=== PATIENT | female | born 2000 | race Caucasian/White ===

== ENCOUNTER 2023-03-06 19:25 | Emergency (ER) | payer OTHER, SELFPAY ==
[2023-03-06 19:31] VITALS: BP 129/80; PULSE 80; RESP 15; TEMP 36.4; O2SAT 99
[2023-03-06 20:03] LABS: Basophils Percent Auto 0.3 % (0.2-1.2); Eosinophils Percent Auto 0.1 % (0-4.4); Hematocrit 43.8 % (37.0-47.0); Hemoglobin 14.8 g/dL (12.0-15.0); Immature Granulocyte Absolute 0.06 K/mm3 (0.00-0.031); Immature Granulocyte Percent A 0.4 % (0-0.5); Immature Platelet Fraction Pct 4.7 % (0.9-11.2); Lymphocytes Absolute Auto 1.02 K/mm3 (0.9-3.2); Lymphocytes Percent Auto 7.5 % (18.3-44.2); Mean Corpuscular HGB Conc 33.8 g/dl (32-36); Mean Corpuscular Volume 91.8 fl (80-100); Mean Platelet Volume 10.1 fl (7.4-10.4); Monocytes Absolute Auto 0.8 K/mm3 (0.1-0.6); Monocytes Percent Auto 5.6 % (2.6-8.5); Neutrophils Absolute Auto 11.6 K/mm3 (1.3-6.7); Neutrophils Percent Auto 86.1 % (45.5-73.1); Platelet Count Result 277 k/mm3 (150-375); Red Blood Count 4.77 M/mm3 (4.2-5.4); White Blood Count 13.5 K/mm3 (4.5-10.0)
[2023-03-06 20:10] LABS: Alanine Aminotransferase 27 U/L (6-35); Albumin Level 5.2 g/dL (3.5-5.1); Alkaline Phosphatase 84 U/L (38-126); Anion Gap 15 mmol/L (8-16); Aspartate Amino Transferase 31 U/L (14-36); Bilirubin,Total 1.2 mg/dL (0.2-1.3); Blood Urea Nitrogen 12 mg/dL (7-17); Carbon Dioxide 19 mmol/L (22-30); Chloride 107 mmol/L (98-107); Estimated CRCL calculation 89 ml/min; Estimated Glomerular Filt Rate > 60; Glucose 136 mg/dL (65-110); Lipase 47 U/L (23-300); Potassium 3.9 mmol/L (3.4-5.0); Sodium 141 mmol/L (137-145)
[2023-03-06] MEDS: FAMOTIDINE 20 MG/2 ML VIAL IV PUSH (20:23)
[2023-03-06] MEDS: SODIUM CHLORIDE 0.9% IV 2,000 ML 999 ML IV CONT (20:23)
[2023-03-06] MEDS: ONDANSETRON INJ 4 MG/2 ML VIAL IV PUSH (20:23)
[2023-03-06] MEDS: HALOPERIDOL LACTATE 5 MG/ML VIAL IV PUSH (20:23)
--- NOTE | 2023-03-06 20:31 | ED.GENADULT ---
HPI - General Adult General Chief complaint: Nausea/Vomiting/Diarrhea Stated complaint: vomiting Time Seen by Provider: 03/06/23 19:58 History of Present Illness HPI narrative: This is a 22-year-old female presenting ED with 1 day of nausea vomiting and loose stools. Patient says it started when she woke from sleep. She is also associated with a diffuse crampy abdominal pain. Pain is nonradiating, 5 out 10 intensity and comes and goes. It is improved with hot showers. She has experienced this in the past. She is a daily marijuana user. She denies fever chills chest pain difficulty breathing urinary symptoms, vaginal discharge irritation Related Data Allergies Allergy/AdvReac Type Severity Reaction Status Date / Time Sulfa (Sulfonamide Allergy Unknown Verified 03/06/23 20:08 Antibiotics) PMFSH Past Medical History Medical History Cannabinoid hyperemesis syndrome Exam Narrative: APPEARANCE: No apparent distress. Head: atraumatic. EYES: EOMI, NOSE: Atraumatic NECK: Trachea midline RESPIRATORY: No increased rate of breathing CARDIOVASCULAR: RRR, ABDOMINAL: abdomen soft nontender tender, no no guarding or rebound MUSCULOSKELETAl: No obvious deformities NEURO: Alert. Moving 4/4 extremities SKIN:: Warm, dry. Normal color PSYCHIATRIC: Normal affect Course Vital Signs Vital signs: Vital Signs Temperature 97.5 F L 03/06/23 19:31 Pulse Rate 80 03/06/23 19:31 Respiratory Rate 15 03/06/23 19:31 Blood Pressure 129/80 03/06/23 19:31 Pulse Oximetry 99 03/06/23 19:31 Oxygen Delivery Room Air 03/06/23 19:31 Temperature 97.5 F L 03/06/23 19:31 Pulse Rate 82 03/06/23 22:17 Respiratory Rate 15 03/06/23 22:17 Blood Pressure 126/90 03/06/23 22:17 Pulse Oximetry 97 03/06/23 22:17 Oxygen Delivery Room Air 03/06/23 19:31 Medical Decision Making [facility] Narrative Medical decision making narrative: -Presentation: 22-year-old female presenting with nausea vomiting and loose stools. -DDX includes but is not limited to: Gastroenteritis, cyclic vomiting, viral syndrome -Co-morbidities complicating care: daily marijuana use -Social determinants of health: patient just graduated college lives with her mom and an -External Chart Review: none -Hx from independent Sources: mother @bedside -Discussion of Management/Consultants: none -Independent interpretation of studies: white blood cell count slightly elevated 13.5. Metabolic panel is within normal limits. Lipase was normal. Patient is not . Urine not indicative of infection Dx tests considered but not ordered: CT abdomen pelvis- abdominal exam is benign -Procedures: -Interventions: 2 L normal saline, Zofran, Haldol, Pepcid, Compazine, Benadryl -Shared decision making / Disposition: upon re-evaluation patient is feeling better. Vital signs normal, abdominal exam is benign. She is tolerating p.o.. Patient discharged. -RX Zofran, Reglan Vital Signs Vital Signs: Vital Signs Temperature 97.5 F L 03/06/23 19:31 Pulse Rate 80 03/06/23 19:31 Respiratory Rate 15 03/06/23 19:31 Blood Pressure 129/80 03/06/23 19:31 Pulse Oximetry 99 03/06/23 19:31 Oxygen Delivery Room Air 03/06/23 19:31 Temperature 97.5 F L 03/06/23 19:31 Pulse Rate 82 03/06/23 22:17 Respiratory Rate 15 03/06/23 22:17 Blood Pressure 126/90 03/06/23 22:17 Pulse Oximetry 97 03/06/23 22:17 Oxygen Delivery Room Air 03/06/23 19:31 Lab Data 03/06/23 19:48 03/06/23 19:47 Labs: Lab Results 03/06/23 03/06/23 03/06/23 Range/Units 19:47 19:48 22:16 WBC 13.5 H (4.5-10.0) K/mm3 RBC 4.77 (4.2-5.4) M/mm3 Hgb 14.8 (12.0-15.0) g/dL Hct 43.8 (37.0-47.0) % MCV 91.8 (80-100) fl MCH 31.0 (26-34) pg MCHC 33.8 (32-36) g/dl RDW 12.0 (11.5-14.5) % Plt Count 277 (150-3
[2023-03-06 21:16] VITALS: BP 115/73; PULSE 89; RESP 16; O2SAT 100
[2023-03-06] MEDS: diphenhydrAMINE HCl INJ 50 MG/ML VIAL 25 MG IV PUSH (21:35)
[2023-03-06] MEDS: PROCHLORPERAZINE EDISYLATE 10 MG/2 ML VIAL IV PUSH (21:36)
[2023-03-06 22:17] VITALS: BP 126/90; PULSE 82; RESP 15; O2SAT 97
[2023-03-06 22:27] LABS: Appearance Urine Clear (Clear); Bacteria Urine None Seen /hpf; Bilirubin Urine Negative (Negative); Blood Urine 1+ (Negative); Color Urine Yellow (Yellow); Glucose Urine UA Negative (Negative); Ketones Urine 4+ mg/dL (Negative); Leukocyte Esterase Ur Negative LEU/UL (Negative); Nitrate Urine Negative (Negative); Non Pathogenic Casts 0-2; Protein Urine Negative (Negative); RBC Urine 0-2 /hpf (0-2); Specific Grav Ur 1.021 (1.001-1.035); Squamous Epithelial Cell Urine None seen /hpf (Few); Urobilinogen Urine 0.2 mg/dL (<2.0); WBC Urine 0-5 /hpf
[2023-03-06 22:59] LABS: Add Urine Microscopic? YES
[2023-03-06 23:34] VITALS: BP 119/83; PULSE 80; RESP 15; O2SAT 97
== END 2023-03-06 23:36 | disposition home or self-care (01) ==
PROVIDERS: Emergency Provider Emergency Medicine
DX: R11.2 Nausea with vomiting, unspecified (principal); F12.90 Cannabis use, unspecified, uncomplicated
CPT/HCPCS: 36415; 80053; 81001; 81025; 83690; 85025; 85055; 96361; 96374; 96375; 99284; J0780; J1200; J1630; J2405; J7030

== ENCOUNTER 2023-03-10 16:40 | Emergency (ER) | payer OTHER, SELFPAY ==
[2023-03-10] VITALS (7 sets, daily range): BP systolic 118–150; BP diastolic 69–110; PULSE 76–94; RESP 16–18; TEMP 36.6–37.1; O2SAT 99–100
--- NOTE | ~2023-03-10 | CT_ITS ---
EXAMINATION: CT abdomen pelvis w con INDICATION: Epigastric abdominal pain TECHNIQUE: Computed tomographic images of the abdomen and pelvis were obtained after the administrati on of 100 cc of Omnipaque 350 intravenous contrast. The dose-length product (DLP) was 276.87 mGy-cm. Automated exposure control and iterative reconstruction technique were employed. COMPARISON: None available FINDINGS: The lung bases are clear. The heart size is normal. The liver, spleen, pancreas, gallbladde r, and adrenal glands are normal. There is mild wall thickening of the gastric antrum. No pathologica lly enlarged abdominal or pelvic lymph nodes are identified. The kidneys are unremarkable. No free in traperitoneal gas or evidence of bowel obstruction. IMPRESSION: 1. Mild wall thickening of the gastric antrum which could reflect gastritis. Reviewed, dictated and finalized at location F.
--- NOTE | 2023-03-10 17:51 | ED.NAVMDI ---
HPI - Nausea/Vomiting/Diarrhea General Chief complaint: Nausea/Vomiting/Diarrhea <HENRIK Fuller Last Filed: 03/10/23 20:25> Stated complaint: vomiting <HENRIK Fuller Last Filed: 03/10/23 20:25> Time Seen by Provider: 03/10/23 17:06 <HENRIK Fuller Last Filed: 03/10/23 20:25> Source: patient and old records reviewed <HENRIK Fuller Last Filed: 03/10/23 20:25> Mode of arrival: ambulatory <HENRIK Fuller Last Filed: 03/10/23 20:25> Limitations: no limitations <HENRIK Fuller Last Filed: 03/10/23 20:25> History of Present Illness HPI Narrative: Patient is a 22 y/o female who presents to the ED with c/o N/V. Patient reports having nausea and vomiting since Saturday. She states in the ED Saturday night. She was given fluids, antiemetics and eventually able to tolerate p.o. intake. Sx's were thought to be r/t daily marijuana use. CT scan was not performed. She was discharged with Zofran and Reglan. Patient states she has still not been able to keep down any food or drink. Last had food on Saturday night. She reports having upper abdominal pain and burning, similar to acid reflux, and lower abdominal cramping. Denies any fever, diarrhea. Last had bowel movement on Saturday. Denies hematemesis, cough or cold symptoms, urinary sx's. <HENRIK Fuller Last Filed: 03/10/23 20:25> Related Data Allergies/Adverse reactions: Allergies Allergy/AdvReac Type Severity Reaction Status Date / Time Sulfa (Sulfonamide Allergy Hives Verified 03/10/23 17:01 Antibiotics) <HENRIK Fuller Last Filed: 03/10/23 20:25> Review of Systems Review of Systems: CONSTITUTIONAL: Denies fever, chills, or sweats. ENT: Denies rhinorrhea, congestion, sore throat. CARDIOVASCULAR: Denies chest pain, palpitations, or edema. RESPIRATORY: Denies cough or dyspnea. GASTROINTESTINAL: See HPI. GENITOURINARY: Denies dysuria or hematuria. NEUROLOGIC: Denies headache, numbness, or weakness. <Jaye Segundo PA-C - Last Filed: 03/10/23 20:25> All systems reviewed & are unremarkable except as noted in HPI and below <Jaye Segundo PA-C - Last Filed: 03/10/23 20:25> PMFSH Past Medical History Medical History: Medical History (Updated 03/10/23 @ 20:17 by Jaye Segundo PA-C) No pertinent past medical history <Jaye Segundo PA-C - Last Filed: 03/10/23 20:25> Surgical History Surgical History: Surgical History (Updated 03/10/23 @ 18:11 by Jaye Segundo PA-C) No pertinent past surgical history <Jaye Segundo PA-C - Last Filed: 03/10/23 20:25> Social History Social History: Social History (Updated 03/10/23 @ 18:45 by Jaye Segundo PA-C) Smoking status: Never smoker Substance use: current Substance use type: marijuana <Jaye Segundo PA-C - Last Filed: 03/10/23 20:25> Exam Narrative: GENERAL: Mildly ill appearing, well-nourished, non-toxic, in no acute distress. HEAD: Normocephalic, atraumatic. NECK: Supple. No adenopathy, no masses. RESPIRATORY: Airway patent, respirations nonlabored. Clear to auscultation bilaterally, no rales, rhonchi, wheezing. CARDIOVASCULAR: Regular rate and rhythm without murmurs, rubs, or gallops. Radial pulses 2+ and equal bilaterally. ABDOMINAL: Soft, tenderness in epigastric region, minimal throughout lower abdomen, no focal lower abdominal tenderness. Nondistended, no hepatosplenomegaly. Normoactive BS. MUSCULOSKELETAL: Moves all extremities. Strength/ROM intact without gross deformities. SKIN: Warm, dry, normal color. No rashes. NEURO: A&O X3. Speech clear. Cranial nerves II-XII grossly intact. Steady gait. No ataxic movements. PSYCHIATRIC: Appropriate mood and affect. Normal interaction. <Jaye Segundo PA-C - Last Filed: 03/10/23 20:25> Course Course Emergency Course
[2023-03-10 18:05] LABS: Basophils Percent Auto 0.3 % (0.2-1.2); Hematocrit 44.9 % (37.0-47.0); Hemoglobin 16.3 g/dL (12.0-15.0); Immature Granulocyte Absolute 0.04 K/mm3 (0.00-0.031); Immature Granulocyte Percent A 0.4 % (0-0.5); Lymphocytes Absolute Auto 0.91 K/mm3 (0.9-3.2); Lymphocytes Percent Auto 8.1 % (18.3-44.2); Mean Corpuscular HGB Conc 36.3 g/dl (32-36); Mean Corpuscular Volume 85.5 fl (80-100); Monocytes Percent Auto 8.8 % (2.6-8.5); Neutrophils Absolute Auto 9.3 K/mm3 (1.3-6.7); Neutrophils Percent Auto 82.4 % (45.5-73.1); Platelet Count Result 350 k/mm3 (150-375); Red Blood Count 5.25 M/mm3 (4.2-5.4); Red Cell Distribution Width 11.6 % (11.5-14.5); White Blood Count 11.2 K/mm3 (4.5-10.0)
[2023-03-10 18:15] LABS: Alanine Aminotransferase 24 U/L (6-35); Albumin Level 5.6 g/dL (3.5-5.1); Alkaline Phosphatase 77 U/L (38-126); Anion Gap 17 mmol/L (8-16); Aspartate Amino Transferase 31 U/L (14-36); Bilirubin,Total 1.9 mg/dL (0.2-1.3); Blood Urea Nitrogen 16 mg/dL (7-17); Calcium 9.8 mg/dL (8.4-10.2); Carbon Dioxide 28 mmol/L (22-30); Chloride 87 mmol/L (98-107); Estimated CRCL calculation 72 ml/min; Estimated Glomerular Filt Rate > 60; Glucose 82 mg/dL (65-110); Lipase 58 U/L (23-300); Potassium 3.1 mmol/L (3.4-5.0); Sodium 132 mmol/L (137-145)
[2023-03-10] MEDS: METOCLOPRAMIDE HCL INJ 10 MG/2 ML VIAL IV PUSH (18:17)
[2023-03-10] MEDS: PANTOPRAZOLE SODIUM IV 40 MG VIAL IV PUSH (18:17)
[2023-03-10] MEDS: SODIUM CHLORIDE 0.9% IV 1,000 ML 999 ML IV CONT ×2 (18:17→19:13)
[2023-03-10 19:26] LABS: Appearance Urine Clear (Clear); Bacteria Urine None Seen /hpf; Bilirubin Urine Negative (Negative); Blood Urine 2+ (Negative); Color Urine Yellow (Yellow); Glucose Urine UA Negative (Negative); Ketones Urine 3+ mg/dL (Negative); Leukocyte Esterase Ur Negative LEU/UL (Negative); Nitrate Urine Negative (Negative); Protein Urine Trace mg/dL (Negative); RBC Urine 0-2 /hpf (0-2); Squamous Epithelial Cell Urine Occasional /hpf (Few); Urobilinogen Urine 0.2 mg/dL (<2.0); WBC Urine 0-5 /hpf; pH Urine 5.5 (5.0-9.0)
[2023-03-10 19:29] LABS: Add Urine Microscopic? YES
[2023-03-10] MEDS: ONDANSETRON INJ 4 MG/2 ML VIAL IV PUSH (20:09)
[2023-03-10] MEDS: diphenhydrAMINE HCl INJ 50 MG/ML VIAL 25 MG IV PUSH (20:09)
[2023-03-10 20:26] LABS: Magnesium 2.3 mg/dL (1.6-2.3)
[2023-03-10] MEDS: HALOPERIDOL LACTATE 5 MG/ML VIAL IV PUSH (20:32)
[2023-03-10] MEDS: POTASSIUM CHLORIDE 20 MEQ PACKET (FOR LIQUID) 40 MEQ PO (20:32)
== END 2023-03-10 21:29 | disposition home or self-care (01) ==
PROVIDERS: Emergency Provider Physician Assistant; PCP Internal Medicine Infectious Disease
DX: K29.00 Acute gastritis without bleeding (principal); R11.2 Nausea with vomiting, unspecified
CPT/HCPCS: 36415; 74177; 80053; 81001; 81025; 83690; 83735; 85025; 96361; 96365; 96375; 99284; A9270; C9113; J0131; J1200; J1630; J2405; J2765; J7030; Q9967

== ENCOUNTER 2025-03-14 07:17 | Observation (INO) | payer OTHER, SELFPAY ==
--- NOTE | ~2025-03-14 | XR_ITS ---
XR chest 1V portable Ordering provider: Ananth Virgen MD History: 24 years Female with . vomting . Comparison: None. FINDINGS: MEDIASTINUM: The cardiac silhouette is not enlarged. LUNGS: No infiltrates, effusions or pneumothorax. OTHER: No free air under the diaphragm. IMPRESSION: No acute cardiopulmonary pathology. Reviewed, dictated and finalized at location A.
--- NOTE | ~2025-03-14 | CT_ITS ---
CT abdomen pelvis w con Ordering provider: Tasha Mcdonald MD History: 24 years Female with . Abdominal pain . Comparison: February 28 Technique: CT abdomen and pelvis with IV and without oral contrast. Automated exposure control and it erative reconstruction technique were employed. The dose-length product was 211.57 mGy-cm. 100 mL Omn ipaque 350 was given IV. Findings: VISUALIZED LOWER CHEST: Normal. UPPER ABDOMINAL ORGANS: Liver: Normal. Gallbladder: Normal. Spleen: Normal. Stomach/duodenum: Normal. Pancreas: Normal. Adrenals: Normal. Kidneys: Normal. PELVIC ORGANS: The bladder is underfilled. Uterus: Normal. BOWEL AND MESENTERY: Colon: No evidence of diverticulitis.. No evidence of appendicitis. Small Bowel: Normal. No obstruction. Peritoneum/mesentery: No free air or free fluid. No mesenteric lymphadenopathy. RETROPERITONEUM: Normal aorta. No retroperitoneal lymphadenopathy. MUSCULOSKELETAL: Superficial soft tissues: The superficial soft tissues are normal. Bones: Normal spine. IMPRESSION: 1. No evidence of appendicitis, diverticulitis or intestinal obstruction. Reviewed, dictated and finalized at location A.
--- OUTSIDE RECORDS SUMMARY | 2025-03-14 07:20 | XMS_ITS | Clinical Summary ---
Author Organization [facility] [address] Address [address] [place] [address] Phone Care Team Providers Care Tariff Counsel Name Role Phone Jaye Martin MD Unavailable Iain Skaggs MD Primary Care Provider [phone] Fransico Solorzano MD Unavailable Harmony Thomas Unavailable Allergies Active Allergy Reactions Criticality Noted Date Comments Sulfa (Sulfonamide Antibiotics) Hives High 01/09 Medications famotidine (PEPCID) 20 mg tabletIndicatio ns:gastroesopha geal reflux disease Take 1 tablet (20 mg total) by mouth 2 (two) times a day 180 tablet 3 5 Active buPROPion XL (WELLBUTRIN XL) 300 mg 24 hr tabletIndicatio ns:Anxiety Take 1 tablet (300 mg total) by mouth every morning 90 tablet 3 5 Active buPROPion XL (WELLBUTRIN XL) 150 mg 24 hr tabletIndicatio ns:Anxiety Take 2 tablets (300 mg total) by mouth every morning 5 02/25/20 25 Discontinu ed(Reorder ) buPROPion XL (WELLBUTRIN XL) 150 mg 24 hr tabletIndicatio ns:Anxiety Take 2 tablets (300 mg total) by mouth every morning 180 tablet 3 04/02/25/20 Discontinu ed(Reorder ) Active Problems Problem Noted Date Diagnosed Date Weight gain 03/05/2024 Assessment & Plan (04/10/2024 10:45 AM CDT): Chronic, present for years, improved. She cut out all sodas and otherwise modified her diet with pretty good preliminary results. The Wellbutrin may also be helping with some weight loss. Assessment & Plan (03/05/2024 8:48 AM CDT): She is slightly overweight, and is concerned that she gains weight despite eating right and exercising regularly. She has access to a home gym at her parent's house. She avoids junk food, although she does drink sodas a few days a week. Mostly she eats sensibly but is not counting calories. We suggested trying a calorie count and cutting back by 10%. Gastroesophageal reflux disease with esophagitis 01/21/2020 Overview (04/09/2023): Upper endoscopy : Short segment Yang's esophagus, but negative pathology (mild reactive changes only). Improved/resolved as of May 2020. Recurrent as of March 2023, omeprazole reordered by GI (Dr. Rashad Lomeli). Assessment & Plan (12/29/2024 4:56 AM PROGRAM PROPOSALS COORDINATOR): Chronic, present for five or more years, we are switching her from PRN omeprazole to daily famotidine, see discussion elsewhere. Assessment & Plan (05/11/2020 10:58 AM CDT): Upper endoscopy earlier this year was essentially normal except for mild reactive esophageal changes. Acid reflux type symptoms have essentially resolved. She uses Tums occasionally as needed. We will monitor clinically. Yang's esophagus without dysplasia 01/21/2020 Overview (04/09/2024): Short segment on endoscopy. Focal intestinal (goblet cell) metaplasia, negative for dysplasia. Assessment & Plan (12/29/2024 4:55 AM PROGRAM PROPOSALS COORDINATOR): Chronic, diagnosed about five years ago, with repeat endoscopy about 18 months ago showing a short segment of Yang's without dysplasia. She currently uses omeprazole 20 mg as needed for symptoms or to prevent symptoms, for example if she is planning to have a meal with red sauce or wine. Recommend resuming chronic acid suppression, with switch from omeprazole to famotidine to hopefully reduce risk of long-term therapy. She denies any trouble swallowing. Recommend keeping followups with GI. We will touch base with her GI physician, Dr. Solorzano, to make sure the above agrees with his plan. Assessment & Plan (04/10/2024 10:45 AM CDT): Chronic, controlled. She continues on omeprazole. I reminded her to follow-up with her GI specialist. Assessment & Plan (03/05/2024 8:41 AM CDT): She had a follow-up EGD last fall, and there was still some Yang's esophagus on the biopsy. She denies trouble swallowing. She only takes omeprazole or famotidine if she has something to eat that causes her heartburn to flare up. We recommended that she take omeprazole daily for now, and call Dr. Solorzano for further instructions and appropriate follow-up. He did mention in his note from the EGD that she should stay on a PPI. Most likely another EGD would be recommended in three years or so Assessment & Plan (07/12/2023 3:08 PM CDT): She sees Dr. Fransico Solorzano or his nurse practitioner. She takes omeprazole. A follow-up endoscopy is planned in the near future. We discussed the risks versus benefits of long-term PPI therapy. In addition to taking daily omeprazole, she sometimes takes Pepcid if she plans to eat something that gives her heartburn. Overall, symptoms seem to be well controlled. She will keep her follow ups with GI for this condition. Anxiety 12/21/2019 Assessment & Plan (12/29/2024 4:53 AM PROGRAM PROPOSALS COORDINATOR): Chronic, present for five or more years, generally well controlled on Wellbutrin, but she ran out and wanted to see how she did without it. She reports feeling emotionally okay, but would like to resume a lower dose as a p reventive measure. Rx sent. Assessment & Plan (04/10/2024 10:45 AM CDT): Chronic, improved. She can tell a definite difference after being on Wellbutrin 150 mg daily for about one month. She still gets anxious and diana at times and would like to try a higher dose which we sent in today. Follow-up in six months, or sooner if needed. Assessment & Plan (03/05/2024 8:40 AM CDT): Mostly she has anxiety, denies feeling depressed as such, but she is a little tearful in the office when describing her emotional struggles. We provided supportive care. Assessment & Plan (12/21/2019 11:37 AM PROGRAM PROPOSALS COORDINATOR): Patient reports symptoms or chest pain and shortness of breath, when she is anxious. She noted that she has been having increasing feelings of anxiety and worry. Medication initiated. Will re-evaluate at her next visit. Mood disorder 12/21/2019 Assessment & Plan (12/29/2024 4:56 AM PROGRAM PROPOSALS COORDINATOR): Chronic, diagnosed about five years ago, mostly anxiety and doing well at this time, see discussion elsewhere. Assessment & Plan (03/05/2024 8:42 AM CDT): She is having trouble with anxiety again, but denies feeling depressed. She emphatically denies suicidal ideation, I would never do that. She denies significant alcohol use, only an occasional drink on the weekends. She denies substance use, only occasional use of marijuana, n ot like before. 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 When she had similar symptoms during college, she responded well to Wellbutrin. She would like to get back on this medication so we sent in a starting dose. We also recommended some counseling, which she has already started to line this up. We will see her back in one month. Assessment & Plan (07/12/2023 3:08 PM CDT): Her mood is much better. She stopped taking mirtazapine several months ago. 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 She is enjoying the very much. Assessment & Plan (06/29/2022 1:54 PM CDT): She graduated from [employer] in October. 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 She is living with her parents and two younger siblings aged 11 and 19. She says her mood is good. We will have her continue the Wellbutrin. Assessment & Plan (04/30/2022 2:21 PM CDT): Patient returns today as she has been struggling with anxiety and depression once again. She states she had been on paxil before, but did not find it to be helpful. She notices she feels anxious about things that are really not such a big deal and are controllable. She on exam today has an elevated PHQ-9 at 10. We discussed options and will trial Wellbutrin as she has noted a 30lb weight gain over the last 1-2 years and is hesitant to gain more. I have also recommended cognitive behavioral therapy which she is agreeable to. She will return in 6-8 weeks for follow up or sooner if needed. Assessment & Plan (05/11/2020 10:59 AM CDT): She continues to have trouble with her mood. She has two or three days of feeling good followed by 3-4 days of feeling down. The symptoms are not extreme, but she does have sadness. She also worries a lot about things she has little control over. We discussed mood issues. It sounds like she is cycling a little bit but is not frankly bipolar. Prozac has not really helped at the current dose. Since anxiety is a prominent feature, we will change to Paxil. We will see her back in one month or sooner if needed. We will consider a mood stabilizer such as valproate. I also recommended that she look into cognitive behavioral therapy for anxiety. She will talk to her mom about this and see what is available. Assessment & Plan (12/22/2019 7:56 AM PROGRAM PROPOSALS COORDINATOR): Patient presents with symptoms of depression and anxiety that have progressively gotten worsen and are now interfering with her daily life. We discussed medication options and she is agreeable to trying a low dose medication to assist with symptoms. We will begin prozac at 10mg daily and up-titrate as needed. She will follow up in January and we will evaluate at that time. Resolved Problems Problem Noted Date Diagnosed Date Resolved Date Bilateral impacted cerumen 06/19/2021 0 06/28/2022 Overview (06/28/2022): Ears irrigated, tolerated well. Assessment & Plan (06/19/2021 4:29 PM CDT): Patient presents with reports of trouble hearing from the right ear. On exam she was noted to have bilateral cerumen impaction. Ears were irrigated, which patient tolerated well. Cerumen removed and hearing improved. Patient was instructed she can use debrox drops as directed for recurrent issues. She will call with any further issues or concerns. Bacterial cystitis 05/11/2021 Overview (06/28/2022): Typical UTI symptoms, has had them before, no systemic symptoms. Treated empirically with nitrofurantoin. Marijuana use 01/15/2020 05/11/2020 Overview (05/11/2020): First 1-2 years of college, resolved. Assessment & Plan (01/15/2020 4:11 PM PROGRAM PROPOSALS COORDINATOR): Complete cessation encouraged. Other chest pain 12/21/2019 07/12/2023 Overview (07/12/2023): Normal EKG and echo, likely due to acid reflux. Resolved as of 2022 office visit. Assessment & Plan (05/11/2020 11:00 AM CDT): She had some atypical chest pain that was probably related to acid reflux. EKG and echo were unremarkable. Additional workup is not needed at this time. Assessment & Plan (12/21/2019 11:36 AM PROGRAM PROPOSALS COORDINATOR): Most likely secondary to anxiety. We did however, do an EKG that revealed sinus bradycardia and T-wave inversion in V1-V2 which is most likely a normal variant, however, comparison not available. When discussed with patient she does report she has a hx of a heart murmur, however, murmur not appreciated on exam today. We will do 2D echo to evaluate for any LV dysfunction or valvular abnormality. Instructed patient if she had continue chest pain she would need to go to the ER for further evaluation, understanding verbalized. Yeast vaginitis 05/13/2019 05/11/2020 Overview (05/11/2020): Resolved. Urinary frequency 05/08/2019 05/08/2019 Persistent mood disorder 05/11/201711/2018 Assessment & Plan (10/31/2018 2:35 PM PROGRAM PROPOSALS COORDINATOR): She is no longer taking Remeron. She does not feel she needs it. She has adjusted well to college life. We will have her follow up annually or sooner as needed. Assessment & Plan (12/08/2017 8:39 PM PROGRAM PROPOSALS COORDINATOR): She came in for evaluation of her mood. She is in her first year of college at [employer]. She says she just does not feel like herself. She has low motivation. She sometimes spends hours in her room, and has crying spells. She is not suicidal. She does not drink excessively. She smokes marijuana once or twice a week. There is no prior history of mental illness or depression. It does not run in the family. This is probably an adjustment reaction to being away from family and her previously secure environment. She is not doing as well in school as she hoped, but knows that she can do better. She went to Student counseling once, but it did not help much. She really does not like to talk about herself or her moods. We discussed the pros and cons of medical therapy. I think it would be reasonable to give her a relatively short course of an antidepressant. Since appetite is poor and she has lost some weight, and there is some sleep disturbance, we will put her on Remeron, risk of medication discussed. If she has a worsening of mood, and especially if she becomes suicidal, she should stop the medicine right away and seek medical help immediately. She is leaving for college again in a few days, so it will be difficult for us to follow up in person, but her father will be visiting her early on in the second semester, and I also asked her to call either home or me to give us some feedback on how she is doing. If she does not notice any improvement on the current low dose of Remeron after a week or two, she can double it from 7.5 mg to 15 mg, and return when able to reassess to determine appropriate duration of therapy. Insect bite 04/29/2017 09/30/2017 Overview (04/29/2017): Large local rxns to mosquito bites. Generalized abdominal pain 04/11/2017 0 11/11/2018 Assessment & Plan (10/01/2017 5:54 AM PROGRAM PROPOSALS COORDINATOR): She started to have bowel symptoms this past summer consisting of generalized abdominal pain and nauseas most mornings that kept her from eating breakfast regularly. Sometimes there was associated vomiting. No hematemesis. 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 Weight has fluctuated with some loss initially, then weight gain, now loss again. She is usually able to eat later in the day. Bowel habits are normal. Denies prior history of bowel problems. Exam is normal. Will check some labs, consider symptomatic treatment, in fact she has taken some over the counter acid reducers, not sure if it makes much of a difference. Anti- nausea medication and GI referral may be appropriate depending on labs, natural course of symptoms. Imaging of gallbladder deferred, as she does not seem to be at risk for gall stones. Work up is somewhat constrained by her scheduled return to college after the , but we will keep in touch with her. Nausea vomiting and diarrhea 04/11/2017 04/09/2024 Overview (05/11/2020): EGD 01/21/2020, [facility], Dr. Fransico Solorzano: Mild reactive changes, symptoms resolved, occasional use of Tums as needed. Assessment & Plan (01/28/2023 12:41 PM CDT): Acute problem, present since Saturday Physical examination as documented - no signs/symptoms of serious illness noted COVID 19 and influenza A/B in office - ALL negative Suspect likely infectious gastroenteritis Recommended continued symptom management/monitoring - patient agreeable to plan Orders for [facility] STAFF to arrange None at this time Orders for Rosalie De Santiago to arrange Continue staying hydrated - can sip water, Gatorade - try to avoid caffeinated, carbonated, or acidic beverages Continue bland diet - crackers, bananas, rice, applesauce, toast - AVOID spicy, overly sweet or acidic foods, or anything else that upsets your stomach Continue Pepcid OTC - take twice daily for the next 3-5 days to help with acid suppression to calm the stomach Continue monitoring symptoms - report persistent or worsening symptoms to the office or go to ER Follow up as scheduled with Dr. Skaggs or sooner if necessary Assessment & Plan (01/15/2020 4:10 PM PROGRAM PROPOSALS COORDINATOR): Patient presents with intractable nausea and vomiting since 01/08 and an associated 10lb weight loss. She was seen in the ER at a hospital in [place]. She was found to be hypokalemic,but no other significant laboratory abnormalities and CT without acute finding. She was diagnosed with cannabis induced hyperemesis. She was started on pepcid, hyoscyamine and zofran with persistent symptoms. Discussed other anti-emetic options with the patient at this time she will continue with zofran on a scheduled basis, and been taking prn as symptoms hopefully improve. She was encouraged to keep her diet bland and avoid high fatty foods. She will be referred for EGD early next week. We will also do BMP to ensure resolution of hypokalemia. Assessment & Plan (11/28/2017 11:20 AM PROGRAM PROPOSALS COORDINATOR): These are most likely functional problems. Her bowel habits are normal. She has lost a little weight, but it is not severe. Lab testing was completely normal. She did not return the stool cards for occult blood. For now, we will continue to monitor without additional testing or referral. Assessment & Plan (10/09/2017 6:21 PM PROGRAM PROPOSALS COORDINATOR): Summer 2016 started having morning severe abdominal cramping with nausea, sometimes vomiting, unable to eat . . . Early satiety. Somewhat irregular BMs. BUT WEIGHT LOSS 11 pounds as freshman in college, fluctuating since then. Discussed IBS precautions (eg regular meals, hydration, rest, regular potty time) but if continues to lose weight consider labs, GI referral. Eczema 06/28/2016 07/12/2017 Overview (02/14/2017): Eczema History of mononucleosis 11/27/2013 Overview (07/12/2017): 11/24 History of acne 10/27/2012 09/30/2017 Overview (07/12/2017): Differerin & OCPs Acne 10/21/2012 11/11/2018 Lower urinary tract infectious disease 08/21/2012 07/12/2017 Overview (02/14/2017): UTI (lower urinary tract infection) Chest pain on exertion 08/21/201209/30 Overview (07/12/2017): & dyspnea & murmer - 08/21 COMPLETE cardiac w/u [facility] including echo and exercise stress test normal Functional heart murmur 08/21/20120 11/2016 Overview (02/14/2017): Benign heart murmur Health care maintenance 08/21/201210/12 Overview (07/12/2017): Assessment & Plan (09/30/2017 11:03 AM PROGRAM PROPOSALS COORDINATOR): Symptoms started about six months ago. They consist of generalized abdominal pain that comes and goes. It is vaguely described. It is usually worse in the morning, and is associated with nausea. Because of that she usually does not eat breakfast. Sometimes she will actually have vomiting with her discomfort. There is never any blood in her stools, and bowel habits remain normal. She has no urinary symptoms. Menstrual periods are normal. Remainder of her exam is normal. Her weight fluctuates depending on how well she has been able to eat. Recently she has started to take some Zantac. She may also benefit from other symptomatic relief for what sounds like functional issues, perhaps some nausea medicine. However first we will check some labs in a stool guaiac. If any of those need follow-up, we will be in touch with her. I do not think imaging or endoscopy is indicated at this time, but we could have her see a GI specialist. However she declines referral at this time. Urticaria 08/21/2012 09/30/2017 Overview (07/12/2017): Recurrent Encounters Date Type Department Care Team Description 02/09/2025 Telephone [facility] [address] [place] [address] Iain Skaggs MD 01/10/2025 Telephone [facility] [address] [place] [address] Iain Skaggs MD 12/28/2024 3:00 PM PROGRAM PROPOSALS COORDINATOR [facility] [address] [place] [phone] Iain Skaggs MD Annual visit for general adult medical examination with abnormal findings (Primary Dx); Mood disorder; Yang's esophagus without dysplasia; Gastroesophageal reflux disease with esophagitis without hemorrhage; Anxiety; Impacted cerumen of left ear; Need for hepatitis C screening test from Last 3 Months Immunizations Immunization Administration Dates Next Due DTaP 03/24/2004, 0,1999,09/25,1999 HPV, Quadrivalent 09/07/2015,04/11/2015,09/07/20 14 Hep B / HiB 08/26/2000,1999,1999 IPV 03/24/2004, 0,1999,07/28 Influenza, Quadrivalent, Spl it, Intramuscular 09/30/2017,09/11/2016 Influenza, Quadrivalent, Spl it, Preservative Free, Intramuscular 09/18/2022 Influenza, Split 08/26/2013,08/25/2012 Influenza, Trivalent, IM (MDV) 09/07/2015,2013,09/11/2010 Influenza, Trivalent, Preser vative Free, Intramuscular 08/28/2011 Influenza, Unspecified 12/28/2024(Deferred: Glenny ent Refused) MMR 03/24/2004,05/27/2000 Meningococcal MCV4P (Menactra) 09/07/2015 Meningococcal Polysaccharide (Menomune) 08/08/2011 Pfizer SARS-CoV-2 Monovalent Vaccination (12+ Yrs) PURPLE 06/10/2021 Pneumococcal Conjugate 7-Valent 07/25/2000,05/23 Tdap 08/08/2011 Varicella 09/07/2014,05/27/2000 Surgical History Surgery Date Site/Laterality Comments WISDOM TOOTH EXTRACTION 05/11/2018 - 06/10/2018 ESOPHAGOGASTRODUODENOSCOPY 01/21/2020 Possible short segment of Yang's, Dr. Fransico Solorzano. SKIN BIOPSY 10/31/2021 Right Anterior thight, MOLLUSCUM CONTAGIOSUM, Dr. Kirk. HM PAP SMEAR WITH HPV 07/16/2024 N/A Dr. Martin ESOPHAGOGASTRODUODENOSCOPY 07/23/2023 N/A There were esophageal mucosal changes consistent with short-segment Yang's esophagus. These changes involved the mucosa at the upper extent of the gastric folds (40 cm from the incisors). There was a tongues of salmon-colored mucosa extending 15 mm proximal to the otherwise relative intact squamocolumnar junction. Biopsies were taken with a cold forceps for histology. Dr. Solorzano. Medical History Medical History Date Comments Abdominal pain 2004 Admit: constipat ion Viral meningitis 2003 Admit [place] 1999 7-9 prod nl preg becky Insect bite 04/29/2017 Large local rxns to mosquito bites. History of mononucleosis 11/27/201311/24 History of acne 10/27/2012 Differerin & OCP s Chest pain on exertion 08/21/2012 & dyspnea & murmer - 08/21 COMPLETE cardiac w/u [facility] including echo and exercise stress test normal Urticaria 08/21/2012 Recurrent Health care maintenance 08/21/2012 Intractable vomiting with nausea 04/11/2017 Generalized abdominal pain 04/11/2017 Acne 10/21/2012 Persistent mood disorder 05/11/2017 Urinary frequency 05/08/2019 SSBE (short-segment Yang' s esophagus) 01/21/2020 Upper endoscopy : Little rt segment Yang's esophagus. Grandfather Yang's as well. Marijuana use 01/15/2020 First 1-2 years of college, associated with hyperemesis, resolved. Nausea and vomiting 04/11/2017 EGD 0, [facility], Dr. Fransico Solorzano: Mild reactive changes, symptoms resolved, occasional use of Tums as needed. Yeast vaginitis 05/13/2019 Resolved. Bacterial cystitis 05/11/2021 Typical UTI s ymptoms, has had them before, no systemic symptoms. Treated empirically with nitrofurantoin. Bilateral impacted cerumen 06/19/2021 Ears irrigated, tolerated well. Other chest pain 12/21/2019 Normal EKG and echo, likely due to acid reflux. Resolved as of 2022 office visit. Nausea vomiting and diarrhea 04/11/2017 EGD 01/21/2020, [facility], Dr. Fransico Solorzano: Mild reactive changes, symptoms resolved, occasional use of Tums as needed. Family History Medical History Relation Name Comments Yang's esophagus Maternal Grandfather Details lacking. Migraines Maternal Grandmother Mitral valve prolapse Mother Crohn's disease Mother's Brother 1 Colon cancer Mother's Brother 2 Diabetes Other 1 Hypertension Other 2 Sudden Other 3 NONE Relation Name Status Comments Maternal Grandfather Maternal Grandmother Mother Mother's Brother 1 Mother's Brother 2 Other 1 Other 2 Other 3 Social History Tobacco Use Types Packs/Day Years Used Date Smoking Tobacco: Never Smokeless Tobacco: Never Tobacco Cessation:Counseling Given: Not Answered Alcohol Use Standard Drinks/Week Comments No 0 (1 standard drink = 0.6 oz pur e alcohol) PHQ-2 Answer Date Recorded PHQ-2 Total Score (If total score is 3 or more points, staff should administer the PHQ-9) 0 12/28/2024 Comments No Sex and Gender Information Value Date Recorded Sex Assigned at Not on file Legal Sex Female 2:01 AM PROGRAM PROPOSALS COORDINATOR Gender Identity Not on file Sexual Orientation Not on file Occupation Industry Job Start Date Job End Date Not on file Not on file Not on file Not on file Obstetrics History Para Term AB IAB SAB Ectopic Multiple Livin g Live Births 0 0 0 0 0 0 0 0 0 0 0 Last Filed Vital Signs Vital Sign Reading Time Taken Comments Blood Pressure 122/72 12/28/2024 2:50 PM PROGRAM PROPOSALS COORDINATOR Pulse 102 12/28/2024 2:50 PM PROGRAM PROPOSALS COORDINATOR Temperature 36.2 C (97.1 F) 12/28/2024 2:50 PM PROGRAM PROPOSALS COORDINATOR Respiratory Rate 16 12/28/2024 2:50 PM PROGRAM PROPOSALS COORDINATOR Oxygen Saturation 99% 12/28/2024 2:50 PM PROGRAM PROPOSALS COORDINATOR Inhaled Oxygen Concentration - - Weight 74.7 kg (164 lb 9.6 oz) 12/28/2024 2:50 P M PROGRAM PROPOSALS COORDINATOR Height 170.2 cm (5' 7.01 ) 12/28/2024 2:50 PM CS T Body Mass Index 25.77 12/28/2024 2:50 PM PROGRAM PROPOSALS COORDINATOR Plan of Treatment Health Maintenance Due Date Last Done Comments Hepatitis C Screening 2000 DTaP/Tdap/Td Vaccine (7 - Td or Tdap) 08/08/2021 08/08/2011, 03/24/2004, 08/26/2000, Additional history exists Covid-19 Vaccine (2023-2 5 season) 2024 07/02/2021, 06/10/2021 Influenza Vaccine (Season Ended) 2025 09/18/2022, 09/30/2017, 09/11/2016, Additional history exists Cervical Cancer Screening 07/16/2025 07/16/2024 Depression Screening 12/28/2025 12/28/2024, 07/12/2023, 06/29/2022, Additional history exists Regular Well Visit/Exam 18-64 12/28/2025, 07/16/2024, 07/12/2023, Additional history exists Pneumococcal vaccine <65 Completed 07/25/2000, 05/11 Hepatitis B Screening Completed 08/26/2000 , 1999, 1999 Varicella Vaccines Completed 09/07/2014, 05/27/2000 HPV Vaccines Completed 09/07/2015, 06/11/2014, 09/07/2014 Procedures Procedure Name Priority Date/Time Associated Diagnosis Comments EAR CERUMEN REMOVAL Routine 12/28/2024 3 :00 PM PROGRAM PROPOSALS COORDINATOR Impacted cerumen of left ear PAP WITH REFLEX TO HIGH RISK HPV Routine 07/16/2024 9:28 AM CDT from Last 3 Months or Most Recently Relevant to Health Maintenance Results * Ear Cerumen Removal (12/28/2024 3:00 PM PROGRAM PROPOSALS COORDINATOR) Narrative Iain Skaggs MD - 12/28/2024 3:00 PM PROGRAM PROPOSALS COORDINATOR Iain Skaggs MD 12/29/2024 5:07 AM Ear Cerumen Removal Performed by: Iain Skaggs MD Authorized by: Iain Skaggs MD Verbal consent obtained: Yes Location: L ear L ear cerumen impacted?: Yes L ear method of removal: Magnification and irrigation L ear magnification: Otoscope Hearing quality: Improved Patient tolerance: Patient tolerated the procedure well with no immediate complications Iain Skaggs MD IN CLINIC/BEDSIDE ORDERABLES Edited Result - Final * Pap with reflex to High Risk HPV and Genotyping (Cytology Component) (07/16/2024 9:28 AM CDT) Pap test 07/16/2024 9:28 AM CDT 07/17/2024 9:28 AM CDT Narrative 07/20/2024 10:[address] [facility] Department of Pathology [address] [place] [address] Final Report Note to Patients: This report may contain a detailed description of human tissue sent by a health care provider to the laboratory for pathologic evaluation. The content of this report is essential for diagnosis and may provide important critical findings. This information may be unfamiliar to patients to review without a medical professional present. It is advised that the patient review this report in the presence of a health care provider who can answer questions and explain the details. Patient Name: ROSALIE DE SANTIAGO Address: [address] [place] [address] Gender: F : 2000 (Age: 24) [id number] Patient Type: [facility] SPECIMEN Taken: 07/16/2024 Received: 07/17/2024 Accessioned:: 07/17/2024 Reported: 07/20/2024 Physician(s): MD Jaye Garcia MD Diagnosis: SOURCE OF SPECIMEN Imaged Thinprep Pap Test w/ Reflex HPV - Aluminum Shingle Roofer Cytologic Material: STATEMENT OF ADEQUACY - Specimen satisfactory for interpretation; endocervical/transformation zone component absent or insufficient GENERAL CATEGORIZATION: - Negative for intraepithelial lesion or malignancy INTERPRETATION: - Numerous inflammatory cells present YENI Silveira(ASCP) Report Electronically Reviewed and Signed Out By YENI Silveira(ASCP) 07/20/2024 10:46:59Specimen(s) Received: A: Imaged Thinprep Pap Test w/ Reflex HPV - Aluminum Shingle Roofer Cytologic Material Clinical History: Last Menstrual Period: 06/30/24 The Pap test is a screening test used to aid in the detection of cervical cancer and its precursors. It should not be the sole means by which malignant and premalignant lesions are diagnosed. Both false negative and false positive results may occur. It also has poor sensitivity for the detection of endometrial lesions and should not be used to evaluate suspected endometrial abnormalities. For these reasons it is most important to obtain Pap tests at regular intervals. The performance characteristics of some immunohistochemical stains, fluorescence in-situ hybridization tests and immunophenotyping by flow cytometry cited in this report (if any) were determined by the Surgical Pathology Department at [facility] as part of an ongoing aircraft quality control inspector program and in compliance with federally mandated regulations drawn from the Clinical Laboratory Improvement Act of 1988 (CLIA '88). Some of these tests rely on the use of analyte specific reagents and are subject to specific labeling requirements by the US Food and Drug Administration. Such diagnostic tests may only be performed in a facility that is certified by the Department of Health and Human Services as a high complexity laboratory under CLIA '88. The FDA has determined that such clearance or approval is not necessary. This test is used for clinical purposes. It should not be regarded as investigational or for research. Nevertheless, federal rules concerning the medical use of analyte specific reagents require that the following disclaimer be attached to the report: This test was developed and its performance characteristics determined by the Surgical Pathology Department [facility]. It has not been cleared or approved by the U. S. Food and Drug Administration. Jaye Martin MD LAB CYTOLOGY ORDERABL ES Final Result from Last 3 Months or Most Recently Relevant to Health Maintenance Insurance COMMERCIAL GENERIC AETNA COVENTRY HMO/POS COMMERCIAL GENERIC MULTIPLAN CARE OTHER [facility] AETNA HEALTHCARE HMO ANTHEM ACCESS CHOICE COMMERCIAL GENERIC Care Teams Tariff Counsel Relationship Specialty Start Date End Date Iain Skaggs MD [address] [place] [address] PCP - General Infectious Diseases 05/06/19 Jaye Martin MD [address] [place] [address] Obstetrics and Gynecology 06/20/17 Fransico Solorzano MD [address] [place] [address] Consulting Physician Gastroenterology 01/22/20 Harmony Thomas PA [address] [place] [address] Physician Respiratory Care Technician Gastroenterology 04/03/23
--- OUTSIDE RECORDS SUMMARY | 2025-03-14 07:20 | XMS_ITS | Encounter Summary ---
Author Organization [facility] Address [address] [place] [address] Care Team Providers Care Coat Feller Name Role Phone Ermelinda Young MD Primary Care Provider Encounter Details Date Type Department Care Team (Late st Contact Info) Description 11/01/2021 Lab Requisition [facility] DermPath Lab [address] [place] [address] Truong Kirk Jr., MD [address] [place] [address] Social History Tobacco Use Types Packs/Day Years Used Date Smoking Tobacco: Never Assessed Comments Unknown Sex and Gender Information Value Date Recorded Sex Assigned at Not on file Legal Sex Female 5:39 AM SLAB MILLER OPERATOR Gender Identity Not on file Sexual Orientation Not on file documented as of this encounter Plan of Treatment Not on file documented as of this encounter Procedures Procedure Name Priority Date/Time Associated Diagnosis Comments DERMATOPATHOLOGY Routine 10/31/2021 12:0 0 AM SLAB MILLER OPERATOR documented in this encounter Results * DERMATOPATHOLOGY (10/31/2021 12:00 AM SLAB MILLER OPERATOR) Case Report Dermatopathology Report Case: [id number] Authorizing Provider: Truong Kirk Jr., MD Collected: 10/31/2021 12:00 AM Ordering Location: [facility] DermPath Lab Received: 11/01/2021 08:18 AM Pathologist: Shayla Rodriguez MD Specimen: Skin, right anterior proximal thigh 3:54 PM [facility] DERMATOPATHOLOGY LABORATORY Final Diagnosis Specimen A. SKIN, right anterior proximal thigh: MOLLUSCUM CONTAGIOSUM (B08.1) 3:54 PM SLAB MILLER OPERATOR DERMATOPATHOLOGY LABORATORY Clinical History Molluscum contagiosum. . 3:54 PM SLAB MILLER OPERATOR DERMATOPATHOLOGY LABORATORY Gross Description Specimen A: Received is one formalin filled container labeled with the patient's name and designated right anterior proximal thigh. The specimen consists of a shave biopsy measuring [id number], [id number], 8b4s1wc, & [id number]. Jar 0+. 3:54 PM SLAB MILLER OPERATOR DERMATOPATHOLOGY LABORATORY Microscopic Description Specimen A. SKIN, right anterior proximal thigh: There are several inverted lobules of squamous epithelium with numerous intracytoplasmic eosinophilic inclusions (molluscum bodies). 3:54 PM SLAB MILLER OPERATOR DERMATOPATHOLOGY LABORATORY Disclaimer An external and internal positive and negative controls are appropriate for the histochemical, immunohistochemical and immunofluorescence stain(s) in this case (if any), except where stated explicitly. The performance characteristics of the stain(s) cited in this report were developed and its performance characteristic determined by the Dermatopathology Laboratory at [facility], directed by Dr. Iveth Rodriguez. These tests need not be, and therefore are not, approved by the [place] Food and Drug Administration. The tests are used for clinical purposes. Billing Codes Specimen Charges Stain Charges 17141 1 3:54 PM SLAB MILLER OPERATOR DERMATOPATHOLOGY LABORATORY Embedded Images 3:54 PM SLAB MILLER OPERATOR DERMATOPATHOLOGY LABORATORY Pathology/Cytolog y TISSUE SPECIMEN FROM SKIN / Unknown 10/31/2021 11/01/2021 8:18 AM SLAB MILLER OPERATOR us Truong Kirk Jr., MD LAB - PATHOLOGY/CYTOLOG Y ORDERABLES Final Result DERMATOPATHOLOGY LABORATORY [facility] - Department of Dermatology [address] [phone] documented in this encounter Visit Diagnoses Not on filedocumented in this encounter Care Teams Coat Feller Relationship Specialty Start Date End Date Ermelinda Young MD [address] [place] [address] PCP - General 08/22/11 documented as of this encounter
--- OUTSIDE RECORDS SUMMARY | 2025-03-14 07:20 | XMS_ITS | Data Portability ---
Author Organization [place] [facility] [place] [facility], [facility], [place] Address [address], [address] Assessment No assessment recorded. Plan of Treatment Reminders Order Date Submit Date Provider Last Modified By Organization Details Last Modified Time Details Appointments None recorded. Lab CBC w/ auto diff 2017 018 cyn [address], [place], [address], 8 20:34:45 cmp, whole blood + brad 2017 018 joelle [place], [address] [place], [place], [address], 8 20:34:45 rapid strep group A, throat 2017 018 cyn [address], [address], [place], [address], 8 11:37:24 Referral None recorded. Procedures intravenou s infusion (PROC) 2017 [facility] [place], [address], 8 20:34:45 Surgeries None recorded. Imaging None recorded. Medication Orders Zofran 2 mg/mL intravenou s solution 2017 [facility]18 [email or web address] #[id number], [address], [place], [id number], 8 20:34:45 promethazi ne 25 mg tablet 2017 018 INTERFACE [facility] #[id number], [address] [place], [id number], 8 14:47:54 Zofran ODT 8 mg disintegra ting tablet 2017 018 INTERFACE [facility] #[id number], [address] [place], [id number], 8 14:47:54 Patient TargetsNo targets recorded. Patient Instructions Encounter Date Encounter Id Patient Instructions Last Modified By Organization Details Last Modified Time 12/04/2017 [id number] nausea and vomiting in teens: care instructions Not available 12/04/2017 20:34:45 Discharge Instructions Not available 12/04/2017 14:47:46 alcohol detoxification and withdrawal: care instructions [email or web address] Not available 12/06/2017 11:34:11 Reason for Referral None Reported. Results Created Date Observation Date Name Description Value Unit Range Abnormal Flag Note LastModifiedBy Organization Detail LastModifiedTime 12/04/19 18 12/04/2017 cmp, whole blood + picco lo Na+ 136 mmol/ L 128-14 5 Not Available [place] [address] [place], , [address], 12/04/2017 13:55:47 12/04/19 18 12/04/2017 cmp, whole blood + picco lo K+ 4.1 mmol/ L 3.6-5. 1 Not Available [place] [address] [place], , [address], 12/04/2017 13:55:47 12/04/19 18 12/04/2017 cmp, whole blood + picco lo TCO2 20 mmol/ L 18-33 Not Available [place] [address] [place] [place], , [address], 12/04/2017 13:55:47 12/04/19 18 12/04/2017 cmp, whole blood + picco lo cL- 106 mmol/ L 98-108 Not Available [place] [address] [place] [place], , [address], 12/04/2017 13:55:47 12/04/19 18 12/04/2017 cmp, whole blood + picco lo glu 118 mg/dL 73-118 Not Available [place] [address] [place], [address], 12/04/2017 13:55:47 12/04/19 18 12/04/2017 cmp, whole blood + picco lo Ca 10.1 mg/dL 8.0-10 .3 Not Available [place] [address] [place], [address], 12/04/2017 13:55:47 12/04/19 18 12/04/2017 cmp, whole blood + picco lo BUN 12 mg/dL 7-22 Not Available [place] [address] [place], [address], 12/04/2017 13:55:47 12/04/19 18 12/04/2017 cmp, whole blood + picco lo cre 0.9 mg/dL 0.6-1. 2 Not Available [place] [address] [place], [address], 12/04/2017 13:55:47 12/04/19 18 12/04/2017 cmp, whole blood + picco lo ALP 54 U/L 42-141 Not Available [place] [address] [place], [address], 12/04/2017 13:55:47 12/04/19 18 12/04/2017 cmp, whole blood + picco lo ALT 31 U/L 10-47 Not Available [place] [address] [place], [address], 12/04/2017 13:55:47 12/04/19 18 12/04/2017 cmp, whole blood + picco lo AST 35 U/L 11-38 Not Available [place] [address], [place], [address], 12/04/2017 13:55:47 12/04/19 18 12/04/2017 cmp, whole blood + picco lo tbil 0.7 mg/dL 0.2-1. 6 Not Available [place] [address] [place], [address], 12/04/2017 13:55:47 12/04/19 18 12/04/2017 cmp, whole blood + picco lo alb 4.6 g/dL 3.3-5. 5 Not [place], [address], 12/04/2017 13:55:47 12/04/19 18 12/04/2017 cmp, whole blood + picco lo TP 7.7 g/dL 6.4-8. 1 Not Available [place], [address], 12/04/2017 13:55:47 12/04/19 18 12/04/2017 intra venou s infus ion (PROC ) Unknown Analyte 18 gauge Not Available [place] [address] [place], [address], 12/04/2017 13:45:50 12/04/19 18 12/04/2017 intra venou s infus ion (PROC ) Unknown Analyte Left AC Not Available [place] [address] [place], [address], 12/04/2017 13:45:50 12/04/19 18 12/04/2017 intra venou s infus ion (PROC ) Unknown Analyte 1 Not Available [place] [address] [place], [address], 12/04/2017 13:45:50 12/04/19 18 12/04/2017 intra venou s infus ion (PROC ) Unknown Analyte 1230 Not Available [place] [address] [place], [address], 12/04/2017 13:45:50 12/04/19 18 12/04/2017 intra venou s infus ion (PROC ) Unknown Analyte 130 Not Available [place], [address], 12/04/2017 13:45:50 12/04/19 18 12/04/2017 intra venou s infus ion (PROC ) Unknown Analyte 60 Not Available [place] [address] [place], [address], 12/04/2017 13:45:50 12/04/19 18 12/04/2017 intra venou s infus ion (PROC ) Unknown Analyte 1000 [place], [address], 12/04/2017 13:45:50 12/04/19 18 12/04/2017 intra venou s infus ion (PROC ) Unknown Analyte 130 Not Available [place] [address] [place], [address], 12/04/2017 13:45:50 12/04/19 18 12/04/2017 intra venou s infus ion (PROC ) Unknown Analyte IV cathet er remove d. Cathet er tip intact . Pressu re dressi ng applie d. No compli cation s. [place], [address], 12/04/2017 13:45:50 12/04/19 18 12/04/2017 intra venou s infus ion (PROC ) Unknown Analyte Normal Saline [place], [address], 12/04/2017 13:45:50 12/04/19 18 12/04/2017 CBC w/ auto diff WBC 11.6 Not Available [place] [address] [place], [address], 12/04/2017 13:45:14 12/04/19 18 12/04/2017 CBC w/ auto diff RBC: 4.45 [place], [address], 12/04/2017 13:45:14 12/04/19 18 12/04/2017 CBC w/ auto diff HGB: 13.8 [place], [address], 12/04/2017 13:45:14 12/04/19 18 12/04/2017 CBC w/ auto diff HCT: 40.2 [place], [address], 12/04/2017 13:45:14 12/04/19 18 12/04/2017 CBC w/ auto diff PLT: 343 Not Available [place] [address], [place], [address], 12/04/2017 13:45:14 12/06/19 18 12/06/2017 rapid strep group A, throa t Strep negati ve Not Available [place] [address], [place], , [address], 12/06/2017 11:37:02 Result Notes None recorded. Medical Equipment None Reported. Medications Name Sig Start Date Stop Date Status Note LastModified by Organization Details LastModified Time clobetasol 0.05 % topical cream active Not Available Not Available Not Available promethazine 25 mg tablet Take 1 tablet every 4 hours by oral route. 2017 active Not Available Not Available Not Avai lable Zofran ODT 8 mg disintegrati ng tablet Place 1 tablet every 8 hours by translingua l route for 2 days. 2017 active Not Available Not Available Not Avai lable norgestimate -ethinyl estradiol 0.18mg/0.215 mg/0.25mg-0. 035mg(28)tab let active Not Available Not Available Not Available mirtazapine 15 mg tablet active Not Available Not Available Not Available Zofran 2 mg/mL intravenous solution Inject 4 mg by intravenous route. 2017 active Not Available Not Available Not Avai lable Mononessa (28) 0.25 mg-35 mcg tablet active Not Available Not Available Not Available Vitals Date Recorded Heart rate Respiratory rate Oxygen saturation Oxygen saturation in Arterial blood by Pulse oximetry Body temperature Body height Body mass index (BMI) Body weight Provider Name and Address Organization Details Last Updated DateTime 8 77 /min 18 /min 98 % 98 % 97.9 [degF] 165.1 cm 20 kg/m2 72249.0 8 g jerry [email or web address] [place] - [place] [facility], [facility] 8 13:33:40 Social History None recorded. Functional Status None recorded. Mental Status None recorded. Family History Nothing Reported. Medical History No medical history recorded. Gynecological HistoryNo gynecological history recorded. Obstetrics History GPAL:G 0 P 0 0 0 0 Past Encounters Encounter ID Performer Location Encounter Start Date Encounter Closed Date Diagnosis/Indication Diagnosis SNOMED-CT Code Diagnosis ICD10 Code Diagnosis Note [id number] Disha OMER [address] [facility] [place] [address] 12/04/2017 13:20:05 12/04/2017 14:52:57 Nausea and vomiting 11093736 R11.2 Alcohol intoxication 257 84607 F10.929 Health Concerns Section Related Observation LastModified by Organization Detai ls LastModified Time None Recorded Concern Status LastModified by Organization Details LastModified Time None Recorded Advance Directives Directive None Recorded Payers Encounter Date Sequence Insurance Name Policy Number Policy Patel Covered Member ID Patel Member ID Guarantor Name 12/04/2017 1 [facility] (O) Maxime Velasco [id number] Rosalie Velasco Notes Date Note Type Note Provider Name and Address Organization Details Recorded Time 12/04/2017 text/html Nausea VomitingReported bypatient.Quality:not changing Severity:mild Onset/ Duration:7 hour(s) ago Timing:abrupt onset Context:no one else with similar symptoms; no possible food sources;alcohol use Alleviating Factors:nothing gives relief Aggravating Factors:nothing makes it worse Associated Symptoms:no abdominal pain; no fever;nausea;dry heaves Disha Gupta [address] [facility], [place], [address], [place] - [place] [facility], [facility] 12/06/2017 11:37:54 OBGyn Episode No OBEpisode recorded.
--- OUTSIDE RECORDS SUMMARY | 2025-03-14 07:20 | XMS_ITS | Referral Summary ---
Author Organization [facility] [address] Address [address] [place] [address] Phone Care Team Providers Care Market Risk Analyst Name Role Phone Jaye Martin MD Unavailable Iain Skaggs MD Primary Care Provider Fransico Solorzano MD Unavailable Harmony Thomas Unavailable Encounters Date Type Department Care Team Description 02/09/2025 Telephone [facility] [address] [place] [phone] Iain Skaggs MD 01/10/2025 [facility] [address] [place] [phone] aIin Skaggs MD 12/28/2024 3:00 PM INTELLIGENCE ENGINEER Office Visit [facility] [address] [place] [phone] Iain Skaggs MD Annual visit for general adult medical examination with abnormal findings (Primary Dx); Mood disorder; 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 Assessment & Plan (12/29/2024 4:56 AM INTELLIGENCE ENGINEER): Chronic, present for five or more years, [...] dysplasia. Assessment & Plan (12/29/2024 4:55 AM INTELLIGENCE ENGINEER): Chronic, diagnosed about five years ago, with [...] 12/21/2019 Assessment & Plan (12/29/2024 4:53 AM INTELLIGENCE ENGINEER): Chronic, present for five or more years, [...] care. Assessment & Plan (12/21/2019 11:37 AM INTELLIGENCE ENGINEER): Patient reports symptoms or chest pain and shortness of breath, when she is anxious. She noted that she has been having increasing feelings of anxiety and worry. Medication initiated. Will re-evaluate at her next visit. 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 She is enjoying the very much. Assessment & Plan (06/29/2022 1:54 PM CDT): She graduated from [employer] in October. 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 She is living with her parents and [...] available. Assessment & Plan (12/22/2019 7:56 AM INTELLIGENCE ENGINEER): Patient presents with symptoms of depression and [...] further issues or concerns. Bacterial cystitis 05/11/2021 2 Overview (06/28/2022): Typical UTI symptoms, has had them before, no systemic symptoms. Treated empirically with nitrofurantoin. Marijuana use 01/15/2020 05/11/2020 Overview (05/11/2020): First 1-2 years of college, resolved. Assessment & Plan (01/15/2020 4:11 PM INTELLIGENCE ENGINEER): Complete cessation encouraged. Other chest pain 12/21/2019 [...] time. Assessment & Plan (12/21/2019 11:36 AM INTELLIGENCE ENGINEER): Most likely secondary to anxiety. We did [...] 05/11/201711/2018 Assessment & Plan (10/31/2018 2:35 PM INTELLIGENCE ENGINEER): She is no longer taking Remeron. She does not feel she needs it. She has adjusted well to college life. We will have her follow up annually or sooner as needed. Assessment & Plan (12/08/2017 8:39 PM INTELLIGENCE ENGINEER): She came in for evaluation of her mood. She is in her first year of college at [employer]. She says she just does [...] 11/11/2018 Assessment & Plan (10/01/2017 5:54 AM INTELLIGENCE ENGINEER): She started to have bowel symptoms this past summer consisting of generalized abdominal pain and nauseas most mornings that kept her from eating breakfast regularly. Sometimes there was associated vomiting. No hematemesis. Symptoms persisted and perhaps worsened during her first semester at [employer] where she is a biology major, wants to be a side trimmer. Weight has fluctuated with some loss initially, [...] diarrhea 04/11/2017 04/09/2024 Overview (05/11/2020): EGD 01/21/2020, [facility], Dr. Fransico Solorzano: Mild reactive changes, [...] necessary Assessment & Plan (01/15/2020 4:10 PM INTELLIGENCE ENGINEER): Patient presents with intractable nausea and vomiting since 01/08 and an associated 10lb weight loss. She was seen in the ER at a hospital in [place]. She was found to be hypokalemic,but no [...] hypokalemia. Assessment & Plan (11/28/2017 11:20 AM INTELLIGENCE ENGINEER): These are most likely functional problems. Her bowel habits are normal. She has lost a little weight, but it is not severe. Lab testing was completely normal. She did not return the stool cards for occult blood. For now, we will continue to monitor without additional testing or referral. Assessment & Plan (10/09/2017 6:21 PM INTELLIGENCE ENGINEER): Summer 2016 started having morning severe abdominal [...] Eczema History of mononucleosis 11/27/2013 Overview (07/12/2017): /14 History of acne 10/27/2012 09/30/2017 Overview (07/12/2017): Differerin & OCPs Acne 10/21/2012 11/11/2018 Lower urinary tract infectious disease 08/21/2012 07/12/2017 Overview (02/14/2017): UTI (lower urinary tract infection) Chest pain on exertion 08/21/201209/30 Overview (07/12/2017): & dyspnea & murmer - 08/21 COMPLETE cardiac w/u [facility] including echo and exercise stress test normal Functional heart murmur 08/21/2012 090 11/2016 Overview (02/14/2017): Benign heart murmur Health care maintenance 08/21/2012 12/2 11/2017 Overview (07/12/2017): Assessment & Plan (09/30/2017 11:03 AM INTELLIGENCE ENGINEER): Symptoms started about six months ago. They [...] time. Urticaria 08/21/2012 09/30/2017 Overview (07/12/2017): Recurrent Immunizations Immunization Administration Dates Next Due DTaP [...] Conjugate 7-Valent 07/25/2000,05/23 Tdap 08/08/2011 Varicella 09/07/2014,05/27/2000 Social History Tobacco Use Types Packs/Day Years [...] on file Legal Sex Female 2:01 AM INTELLIGENCE ENGINEER Gender Identity Not on file Sexual Orientation Not on file Occupation Industry Job Start Date Job End Date Not on file Not on file Not on file Not on file Last Filed Vital Signs Vital Sign Reading Time Taken Comments Blood Pressure 122/72 12/28/2024 2:50 PM INTELLIGENCE ENGINEER Pulse 102 12/28/2024 2:50 PM INTELLIGENCE ENGINEER Temperature 36.2 C (97.1 F) 12/28/2024 2:50 PM INTELLIGENCE ENGINEER Respiratory Rate 16 12/28/2024 2:50 PM INTELLIGENCE ENGINEER Oxygen Saturation 99% 12/28/2024 2:50 PM INTELLIGENCE ENGINEER Inhaled Oxygen Concentration - - Weight 74.7 kg (164 lb 9.6 oz) 12/28/2024 2:50 P M INTELLIGENCE ENGINEER Height 170.2 cm (5' 7.01 ) 12/28/2024 2:50 PM CS T Body Mass Index 25.77 12/28/2024 2:50 PM INTELLIGENCE ENGINEER Plan of Treatment Not on file Procedures Procedure Name Priority Date/Time Associated Diagnosis Comments EAR CERUMEN REMOVAL Routine 12/28/2024 3 :00 PM INTELLIGENCE ENGINEER Impacted cerumen of left ear PAP WITH REFLEX TO HIGH RISK HPV Routine 07/16/2024 9:28 AM CDT from Last 3 Months or Most Recently Relevant to Health Maintenance Results * Ear Cerumen Removal (12/28/2024 3:00 PM INTELLIGENCE ENGINEER) Narrative Iain Skaggs MD - 12/28/2024 3:00 PM INTELLIGENCE ENGINEER Iain Skaggs MD 12/29/2024 5:07 AM Ear [...] AM CDT Narrative 07/20/2024 10:46 AM CDT [facility] Department of Pathology [address] [place] [address] Final Report Note to Patients: This report [...] details. Patient Name: ROSALIE DE SANTIAGO Address: [address] [place] [address] Gender: F : 2000 (Age: 24) Service: Location: [place] [facility] #: [id number] Patient Type: [facility] SPECIMEN Taken: 07/16/2024 Received: 07/17/2024 Accessioned:: 07/17/2024 Reported: 07/20/2024 Physician(s): MD Jaye Garcia MD Diagnosis: SOURCE OF SPECIMEN Imaged Thinprep Pap Test w/ Reflex HPV - Field Counsel Cytologic Material: STATEMENT OF ADEQUACY - Specimen satisfactory for interpretation; endocervical/transformation zone component absent or insufficient GENERAL CATEGORIZATION: - Negative for intraepithelial lesion or malignancy INTERPRETATION: - Numerous inflammatory cells present YENI Silveira(ASCP) Report Electronically Reviewed and Signed Out By YENI Silveira(ASCP) 07/20/2024 10:46:59Specimen(s) Received: A: Imaged Thinprep Pap Test w/ Reflex HPV - Field Counsel Cytologic Material Clinical History: Last Menstrual Period: [...] determined by the Surgical Pathology Department at [facility] as part of an ongoing quality control inspector heading program and in compliance with federally mandated [...] characteristics determined by the Surgical Pathology Department [facility]. It has not been cleared or approved by the U. S. Food and Drug Administration. Jaye Martin MD LAB CYTOLOGY ORDERABL ES Final Result from Last 3 Months or Most Recently Relevant to Health Maintenance Insurance COMMERCIAL GENERIC AETNA COVENTRY HMO/POS COMMERCIAL GENERIC MULTIPLAN CARE OTHER [facility] ANTHEM ACCESS CHOICE COMMERCIAL GENERIC Care Teams Market Risk Analyst Relationship Specialty Start Date End Date Iain Skaggs MD [address] [place] [address] PCP - General Infectious Diseases 05/06/19 Jaye Martin MD [address] [place] [address] Obstetrics and Gynecology 06/20/17 Fransico Solorzano MD [address] [place] [address] Consulting Physician Gastroenterology 01/22/20 Harmony Thomas PA [address] [facility] [address] [place] [address] Physician Rehab Director Occupational Therapist Gastroenterology 04/03/23
--- OUTSIDE RECORDS SUMMARY | 2025-03-14 07:20 | XMS_ITS | Clinical Summary ---
Author Organization [employer] [address] [place] [address] [place] [address] Care Team Providers Care Resistance Welding Machine Operator Name Role Phone Iain Skaggs MD Primary Care Provider [phone] Allergies Active Allergy Reactions Criticality Noted Date Comments Sulfa (Sulfonamide Antibiotics) Hives High 01/09 Medications famotidine (PEPCID) 20 mg tablet Take 20 mg by mouth 2 times daily. Active ondansetron 4 mg disintegrating tablet Take 4 mg by mouth every 8 hours as needed for Nausea/Emesi s. Dissolve tablet on top of tongue, then swallow with saliva. Active omeprazole (PriLOSEC) 20 mg Capsule, Delayed Release(E.C.)Indica tions:SSBE (short-segment Yang's esophagus) TAKE 1 CAPSULE BY MOUTH EVERY DAY 90 Capsule 3 Active Active Problems Problem Noted Date Diagnosed Date SSBE (short-segment Yang's esophagus) 020 Overview (07/24/2023): Upper endoscopy 01/2020: Short segment Yang's esophagus. Maternal grandfather Yang's as well. 07/2023: short segment Yang's esophagus. Discussed option of 24-hour pH study to assess for presence of significant reflux to help determine the need for chronic acid suppressive therapy with proton pump inhibitor. Also discussed the potential utility of her mother undergoing screening upper endoscopy. Hyperemesis resolved off of cannabis. Family History Medical History Relation Name Comments Colon Cancer Maternal Uncle Relation Name Status Comments Maternal Uncle Social History Tobacco Use Types Packs/Day Years Used Date Smoking Tobacco: Never Smokeless Tobacco: Never Alcohol Use Standard Drinks/Week Comments Yes 8 (1 standard drink = 0.6 oz pur e alcohol) Comments No Sex and Gender Information Value Date Recorded Sex Assigned at Not on file Legal Sex Female 10:37 AM CDT Gender Identity Not on file Sexual Orientation Not on file Last Filed Vital Signs Vital Sign Reading Time Taken Comments Blood Pressure 114/73 07/23/2023 1:44 PM CDT Pulse 74 07/23/2023 1:44 PM CDT Temperature 36.4 C (97.5 F) 07/23/2023 1:34 PM CDT Respiratory Rate 15 07/23/2023 1:44 PM CDT Oxygen Saturation 98% 07/23/2023 1:44 PM CDT Inhaled Oxygen Concentration - - Weight 75.4 kg (166 lb 3.2 oz) 07/23/2023 12:35 PM CDT Height 167.6 cm (5' 6 ) 07/23/2023 12:35 PM CDT Body Mass Index 26.83 07/23/2023 12:35 PM CDT Plan of Treatment Health Maintenance Due Date Last Done Comments HPV/Cotest (-) 2020 DTAP/TDAP/TD VACCINES (7 - T d or Tdap) 08/08/2021 08/08/2011, 03/24/2004, 08/26/2000, Additional history exists INFLUENZA VACCINE (#1) 2024 , 09/30/2017, 09/11/2016, Additional history exists COVID-19 Vaccine (2023-2 5 season) 2024 06/10/2021 UPPER GI ENDOSCOPY 07/23/2026 07/23/2023, 01/21/2020 CERVICAL CANCER SCREENING 07/16/2027 PAP SMEAR 07/16/2027 07/16/2024 HEPATITIS B VACCINES Completed 08/26/2000, [birth year] HPV VACCINES Completed 09/07/2015, 11/2014, 09/07/2014 Insurance AETNA CHOICE POS II Advance Directives For more information, please contact: [phone] * Full Code (Latest Code Status on File) Date Activated Date Inactivated Comments 07/23/2023 12:29 PM 07/23/2023 4:01 PM * Full Code Date Activated Date Inactivated Comments 01/21/2020 12:22 PM 01/21/2020 4:54 PM Care Teams Resistance Welding Machine Operator Relationship Specialty Start Date End Date Iain Skaggs MD [address] [place] [address] PCP - General Internal Medicine 01/19/20
--- OUTSIDE RECORDS SUMMARY | 2025-03-14 07:20 | XMS_ITS | Clinical Summary ---
Author Organization [facility] Address [address] [facility] [place] [address] Care Team Providers Care Hand Knitter Name Role Phone Ermelinda Young MD Primary Care Provider Source Comments [facility] Affiliates and Associated Physician Practices is amultiple site organization consisting of ambulatory clinics and hospital sitesin [place], [place], [place] and [place]. This disclosure is being madepursuant to the Care Everywhere program and may not contain all information available regarding this patient. Last updated 18.[facility] Allergies Active Allergy Reactions Criticality Noted Date Comments Sulfa Drugs 08/23/2011 Medications * Be aware that medications may not be up to date on this document. Alwaysverify current medications with the patient. No known medications Active Problems Problem Noted Date Diagnosed Date Chest pain 08/23/2011 Social History Tobacco Use Types Packs/Day Years Used Date Smoking Tobacco: Never Assessed Comments Unknown Sex and Gender Information Value Date Recorded Sex Assigned at Not on file Legal Sex Female 5:39 AM RECREATION TEACHER Gender Identity Not on file Sexual Orientation Not on file Last Filed Vital Signs Vital Sign Reading Time Taken Comments Blood Pressure 120/68 08/23/2011 2:06 PM CDT Pulse 72 08/23/2011 2:06 PM CDT Temperature - - Respiratory Rate 24 08/23/2011 2:06 PM CDT Oxygen Saturation - - Inhaled Oxygen Concentration - - Weight 58.3 kg (128 lb 8.5 oz) 08/23/2011 2:06 P M CDT Height 164.5 cm (5' 4.76 ) 08/23/2011 2:06 PM CD T Body Mass Index 21.54 08/23/2011 2:06 PM CDT Plan of Treatment Health Maintenance Due Date Last Done Comments HIV SCREENING 2014 HPV VACCINE (1 - 3-dose series) 2014 CHLAMYDIA/GONORRHEA SCREENING 2015 HEPATITIS C SCREENING 05/21/2017 DTAP/TDAP/TD VACCINES (1 - Tdap) 2018 HEPATITIS B VACCINE (1 of 3 - 19+ 3-dose series) 2018 COVID-19 VACCINE (1 - 2023-2 5 season) 2024 DEPRESSION SCREENING 11/11/2024 INFLUENZA VACCINE (Season Ended) 2025 ZOSTER VACCINE (1 of 2) 2049 HIB VACCINE Aged Out No longer eligi ble based on patient's age to complete this topic MENINGOCOCCAL (Group B) VACC INE SHARED DECISION-MAKING Aged Out No longer eligibl e based on patient's age to complete this topic MENINGOCOCCAL GROUPS A/C/Y/W VACCINE Aged Out No longer eligible b ased on patient's age to complete this topic PNEUMOCOCCAL VACCINE Aged Out No long er eligible based on patient's age to complete this topic Insurance AETNA Care Teams Hand Knitter Relationship Specialty Start Date End Date Ermelinda Young MD [address] [place] [address] PCP - General 08/22/11
[2025-03-14 07:22] VITALS: BP 124/96; PULSE 78; RESP 16; TEMP 36.2; O2SAT 100
--- NOTE | 2025-03-14 07:29 | ED_ITS ---
HPI - Nausea/Vomiting/Diarrhea General Chief complaint: Nausea/Vomiting/Diarrhea Stated complaint: I can't stop throwing up Time Seen by Provider: 03/14/25 07:29 Source: patient and family Mode of arrival: ambulatory Limitations: no limitations History of Present Illness HPI Narrative: 24 years old white female came to the ED by private car with her mom complaining of vomiting started 4 days ago associated with abdominal pain. Patient is telling me that she vomits at least 30 times a day. History of anxiety and marijuana use daily. Patient believed that her symptom related to marijuana Related Data Allergies Allergy/AdvReac Type Severity Reaction Status Date / Time Sulfa (Sulfonamide Allergy Hives Verified 03/14/25 07:18 Antibiotics) Review of Systems 2 Review of Systems: All systems reviewed & are unremarkable except as noted in HPI and below PMFSH Past Medical History Medical History Cannabinoid hyperemesis syndrome No pertinent past medical history Surgical History Surgical History No pertinent past surgical history Social History Social History Smoking status: Never smoker Substance use: current Substance use type: marijuana Exam 2 Narrative: General appearance: Well-developed, well-nourished Skin: Normal color Head: Normocephalic, nontraumatic Eyes: Clear conjunctiva ENT: Oropharynx normal, ears normal, nose normal Neck: Supple, nontender Chest and respiratory: Airway patent, no respiratory distress, no accessory muscle use Heart: Regular rate/rhythm Abdomen: Soft, nontender, no organomegaly, quiet bowel sounds Vascular: Normal peripheral pulses, normal capillary refill. Musculoskeletal: Normal range of motion, nontender back Neurologic: Alert and oriented ?3, SENIOR PRODUCT INTEGRITY ENGINEER is normal as tested, no gross motor deficit Course Vital Signs Vital signs: Vital Signs Temperature 36.2 C L 03/14/25 07:22 Pulse Rate 78 03/14/25 07:22 Respiratory Rate 16 03/14/25 07:22 Blood Pressure 124/96 H 03/14/25 07:22 Pulse Oximetry 100 03/14/25 07:22 Temperature 36.2 C L 03/14/25 07:22 Pulse Rate 78 03/14/25 07:22 Respiratory Rate 16 03/14/25 07:22 Blood Pressure 124/96 H 03/14/25 07:22 Pulse Oximetry 100 03/14/25 07:22 MDM - Nausea/Vomiting/Diarrhea MDM Narrative Medical decision making narrative: Patient came with nausea and vomiting Vital signs are stable Physical examination showing a patient holding vomiting bag with dry heaves Differential diagnosis include anxiety inducing vomiting, marijuana inducing hyper emesis, electrolyte imbalance, dehydration, urinary tract infection, Blood workup today includes CBC, CMP, lipase showed WBC 14.4 BUN 32, creatinine 1.36 Urinalysis showed proteinuria, positive for ketones CT abdomen and pelvis with IV contrast showed no acute abnormality. Diagnosis CARLY secondary to vomiting high likely secondary to marijuana inducing vomiting Differential Diagnosis Differential diagnosis: Likely other (As above) Medical Records Attestation: I reviewed the patient's medical records. Lab Data Attestation: I reviewed the patient's lab results. 03/14/25 07:43 03/14/25 07:43 Labs: Lab Results 03/14/25 Range/Units 07:43 WBC 14.4 H (4.5-10.0) K/mm3 RBC 5.09 (4.2-5.4) M/mm3 Hgb 15.2 H (12.0-15.0) g/dL Hct 44.8 (37.0-47.0) % MCV 88.0 (80-100) fl MCH 29.9 (26-34) pg MCHC 33.9 (32-36) g/dl RDW 12.3 (11.5-14.5) % Plt Count 343 (150-375) k/mm3 MPV 9.7 (7.4-10.4) fl Immature Gran % (Auto) 0.6 H (0-0.5) % Neut % (Auto) 87.2 H (45.5-73.1) % Lymph % (Auto) 5.1 L (18.3-44.2) % Blair % (Auto) 7.0 (2.6-8.5) % Eos % (Auto) 0.0 (0-4.4) % Baso % (Auto) 0.1 L (0.2-1.2) % Lymph # (Auto) 0.73 L (0.9-3.2) K/mm3 Blair # (Auto) 1.0 H (0.1-0.6) K/mm3 Eos # (Auto) 0.0 (0-0.3) K/mm3 Baso # (Auto) 0.0 (0.0-0.1) K/mm3 Abs Immat Gran (auto) 0.09 H (0.00-0.031) K/mm3 Absolute Neuts (auto) 12.5 H (1.3-6.7) K/mm3 Absolute Nucleated RBC 0.000 (0.0-0.012) K/mm3 Nucleated RBC % 0.0 (0.0-0.2) % Sodium 134 L (137-145) mmol/L Potassium 3.4 (3.4-5.0) mmol/L Chloride 92 L (98-107) mmol/L Carbon Dioxide 22 (22-30) mmol/L Anion Gap 20 H (4-12) mmol/L BUN 32 H D (7-17) mg/dL Creatinine 1.36 H (0.7-1.0) mg/dL Estim Creat Clear Calc 53 ml/min Estimated GFR 47 L (59 - ) Glucose 122 H (65-110) mg/dL Calcium 10.0 (8.4-10.2) mg/dL Total Bilirubin 1.4 H (0.2-1.3) mg/dL AST 31 (14-36) U/L ALT 26 (6-35) U/L Alkaline Phosphatase 86 (38-126) U/L Total Protein 9.0 H (6.3-8.2) g/dL Albumin 5.5 H (3.5-5.1) g/dL Lipase 63 (23-300) U/L Urine Color Dark yellow (Yellow) Urine Appearance Cloudy H (Clear) Urine pH 5.0 (5.0-9.0) Ur Specific Mathis 1.034 (1.001-1.035) Urine Protein 2+ H (Negative) mg/dL Urine Glucose (UA) Negative (Negative) mg/dL Urine Ketones 2+ H (Negative) mg/dL Ur Blood (Man) 3+ H (Negative) Urine Nitrate Negative (Negative) Urine Bilirubin Negative (Negative) Urine Urobilinogen 0.2 (<2.0) mg/dL Add Ur Microanalysis Reviewed Leukocyte Esterase Rfl Trace H (Negative) KIM/UL Urine RBC >100 H (0-2) /hpf Urine WBC 6-10 H (0-3) /hpf Ur Squamous Epith Cells Few (Few) /hpf Urine Bacteria None seen /hpf Urine Casts 11-20 Imaging Data Radiologist's impression: Impressions Abdomen/Pelvis CT 03/14/25 08:02 IMPRESSION: 1. No evidence of appendicitis, diverticulitis or intestinal obstruction. Critical Care Time Critical Care Time Critical Care Time: Yes Total Critical Care Time: 30 Discharge Plan Discharge Clinical Impression: CARLY (acute kidney injury), Cannabis hyperemesis syndrome concurrent with and due to cannabis abuse Patient Disposition: Still a Patient Condition: Guarded Prognosis Additional Instructions: Admit to hospitalist Patient Language: Danish Prescriptions: No Action ondansetron 4 mg tablet,disintegrating 4 mg PO Q8H PRN (Reason: nausea and vomiting) Qty: 30 0RF metoclopramide HCl [Reglan] 10 mg tablet 10 mg PO Q6H PRN (Reason: nausea and vomiting) Qty: 30 0RF ondansetron 4 mg tablet,disintegrating 4 mg PO Q8H PRN (Reason: nausea and vomiting) Qty: 10 0RF Follow-up/Referrals: Sharifa,Iain Arvizu MD [Primary Care Provider] -
--- NOTE | 2025-03-14 07:37 | PC.NURSE ---
Patient states she has Cannabinoid hyperemesis syndrome and the last time she smoked was last week prior to getting sick. Patient has been seen in this ED in the past for the same
[2025-03-14] MEDS: SODIUM CHLORIDE 0.9% IV 1,000 ML 999 ML IV CONT (07:40)
[2025-03-14] MEDS: ONDANSETRON INJ 4 MG/2 ML VIAL IV PUSH ×3 (07:40→18:31)
--- OUTSIDE RECORDS SUMMARY | 2025-03-14 07:45 | XMS_ITS | Clinical Summary ---
Author Organization [facility] [address] Address [address] [place] [address] Phone Care Team Providers Care Senior Principal Software Engineer Name Role Phone Jaye Martin MD Unavailable Iain Skaggs MD Primary Care Provider [phone] Fransico Solorzano MD Unavailable Harmony Thomas Unavailable [...] Lomeli). Assessment & Plan (12/29/2024 4:56 AM NEUROUROLOGIST): Chronic, present for five or more years, [...] dysplasia. Assessment & Plan (12/29/2024 4:55 AM NEUROUROLOGIST): Chronic, diagnosed about five years ago, with [...] (07/12/2023 3:08 PM CDT): She sees Dr. Farnsico Solorzano or his nurse practitioner. She takes [...] 12/21/2019 Assessment & Plan (12/29/2024 4:53 AM NEUROUROLOGIST): Chronic, present for five or more years, [...] care. Assessment & Plan (12/21/2019 11:37 AM NEUROUROLOGIST): Patient reports symptoms or chest pain and shortness of breath, when she is anxious. She noted that she has been having increasing feelings of anxiety and worry. Medication initiated. Will re-evaluate at her next visit. 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 She is enjoying the very much. Assessment & Plan (06/29/2022 1:54 PM CDT): She graduated from [employer] in October. 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 She is living with her parents and [...] available. Assessment & Plan (12/22/2019 7:56 AM NEUROUROLOGIST): Patient presents with symptoms of depression and [...] resolved. Assessment & Plan (01/15/2020 4:11 PM NEUROUROLOGIST): Complete cessation encouraged. Other chest pain 12/21/2019 [...] time. Assessment & Plan (12/21/2019 11:36 AM NEUROUROLOGIST): Most likely secondary to anxiety. We did [...] 05/11/201711/2018 Assessment & Plan (10/31/2018 2:35 PM NEUROUROLOGIST): She is no longer taking Remeron. She does not feel she needs it. She has adjusted well to college life. We will have her follow up annually or sooner as needed. Assessment & Plan (12/08/2017 8:39 PM NEUROUROLOGIST): She came in for evaluation of her mood. She is in her first year of college at [employer]. She says she just does not [...] 11/11/2018 Assessment & Plan (10/01/2017 5:54 AM NEUROUROLOGIST): She started to have bowel symptoms this past summer consisting of generalized abdominal pain and nauseas most mornings that kept her from eating breakfast regularly. Sometimes there was associated vomiting. No hematemesis. 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 Weight has fluctuated with some loss initially, [...] necessary Assessment & Plan (01/15/2020 4:10 PM NEUROUROLOGIST): Patient presents with intractable nausea and vomiting since 01/08 and an associated 10lb weight loss. She was seen in the ER at a hospital in [place]. She was found to be hypokalemic,but no [...] hypokalemia. Assessment & Plan (11/28/2017 11:20 AM NEUROUROLOGIST): These are most likely functional problems. Her bowel habits are normal. She has lost a little weight, but it is not severe. Lab testing was completely normal. She did not return the stool cards for occult blood. For now, we will continue to monitor without additional testing or referral. Assessment & Plan (10/09/2017 6:21 PM NEUROUROLOGIST): Summer 2016 started having morning severe abdominal [...] & murmer - 08/21 COMPLETE cardiac w/u [facility] including echo and exercise stress test normal Functional heart murmur 08/21/20120 11/2016 Overview (02/14/2017): Benign heart murmur Health care maintenance 08/21/201210/12 Overview (07/12/2017): Assessment & Plan (09/30/2017 11:03 AM NEUROUROLOGIST): Symptoms started about six months ago. They [...] Type Department Care Team Description 02/09/2025 Telephone [facility] [address] [place] [address] Iain Skaggs MD 01/10/2025 Telephone [facility] [address] [place] [address] Iain Skaggs MD 12/28/2024 3:00 PM NEUROUROLOGIST [facility] [address] [place] [address] Iain Skaggs MD Annual visit for general [...] Admit: constipat ion Viral meningitis 2003 Admit [place] 1999 7-9 prod nl preg becky Insect [...] resolved. Nausea and vomiting 04/11/2017 EGD 0, [facility], Dr. Fransico Solorzano: Mild reactive changes, symptoms [...] on file Legal Sex Female 2:01 AM NEUROUROLOGIST Gender Identity Not on file Sexual Orientation [...] Comments Blood Pressure 122/72 12/28/2024 2:50 PM NEUROUROLOGIST Pulse 102 12/28/2024 2:50 PM NEUROUROLOGIST Temperature 36.2 C (97.1 F) 12/28/2024 2:50 PM NEUROUROLOGIST Respiratory Rate 16 12/28/2024 2:50 PM NEUROUROLOGIST Oxygen Saturation 99% 12/28/2024 2:50 PM NEUROUROLOGIST Inhaled Oxygen Concentration - - Weight 74.7 kg (164 lb 9.6 oz) 12/28/2024 2:50 P M NEUROUROLOGIST Height 170.2 cm (5' 7.01 ) 12/28/2024 2:50 PM CS T Body Mass Index 25.77 12/28/2024 2:50 PM NEUROUROLOGIST Plan of Treatment Health Maintenance Due Date [...] CERUMEN REMOVAL Routine 12/28/2024 3 :00 PM NEUROUROLOGIST Impacted cerumen of left ear PAP WITH REFLEX TO HIGH RISK HPV Routine 07/16/2024 9:28 AM CDT from Last 3 Months or Most Recently Relevant to Health Maintenance Results * Ear Cerumen Removal (12/28/2024 3:00 PM NEUROUROLOGIST) Narrative Iain Skaggs MD - 12/28/2024 3:00 PM NEUROUROLOGIST Iain Skaggs MD 12/29/2024 5:07 AM Ear [...] AM CDT Narrative 07/20/2024 10:46 AM CDT [facility] Department of Pathology [address] [place] [address] Final Report Note to Patients: This report [...] details. Patient Name: ROSALIE DE SANTIAGO Address: [address] [place] [address] Gender: F : 2000 (Age: 24) Service: Location: [facility] #: [id number] Patient Type: [facility] SPECIMEN Taken: 07/16/2024 Received: 07/17/2024 Accessioned:: 07/17/2024 Reported: 07/20/2024 Physician(s): MD Jaye Garcia MD Diagnosis: SOURCE OF SPECIMEN Imaged Thinprep Pap Test w/ Reflex HPV - Textiles Printer Cytologic Material: STATEMENT OF ADEQUACY - Specimen satisfactory for interpretation; endocervical/transformation zone component absent or insufficient GENERAL CATEGORIZATION: - Negative for intraepithelial lesion or malignancy INTERPRETATION: - Numerous inflammatory cells present YENI Silveira(ASCP) Report Electronically Reviewed and Signed Out By YENI Silveira(ASCP) 07/20/2024 10:46:59Specimen(s) Received: A: Imaged Thinprep Pap Test w/ Reflex HPV - Textiles Printer Cytologic Material Clinical History: Last Menstrual Period: [...] determined by the Surgical Pathology Department at [facility] as part of an ongoing clinical quality manager program and in compliance with federally mandated [...] characteristics determined by the Surgical Pathology Department [facility]. It has not been cleared or approved by the U. S. Food and Drug Administration. Jaye Martin MD LAB CYTOLOGY ORDERABL ES Final Result from Last 3 Months or Most Recently Relevant to Health Maintenance Insurance COMMERCIAL GENERIC AETNA COVENTRY HMO/POS COMMERCIAL GENERIC MULTIPLAN CARE [facility] AETNA HEALTHCARE HMO ANTHEM ACCESS CHOICE COMMERCIAL GENERIC Care Teams Senior Principal Software Engineer Relationship Specialty Start Date End Date Iain Skaggs MD [address] [place] [address] PCP - General Infectious Diseases 05/06/19 Jaye Martin MD [address] [place] [address] Obstetrics and Gynecology 06/20/17 Fransico Solorzano MD [address] [place] [address] Consulting Physician Gastroenterology 01/22/20 Harmony Thomas PA [address] [facility] [address] [place] [address] Physician Supervisor Warping Department Gastroenterology 04/03/23
--- OUTSIDE RECORDS SUMMARY | 2025-03-14 07:46 | XMS_ITS | Encounter Summary ---
Author Organization [facility] Address [address] [place] [address] Care Team Providers Care Tractor Technician Name Role Phone Ermelinda Young MD Primary Care Provider [phone] Encounter Details Date Type Department Care Team (Late st Contact Info) Description 11/01/2021 Lab Requisition [facility] D[facility] [address] [place] [address] Truong Kirk Jr., MD [address] [place] [address] Social History Tobacco Use Types Packs/Day Years Used Date Smoking Tobacco: Never Assessed Comments Unknown Sex and Gender Information Value Date Recorded Sex Assigned at Not on file Legal Sex Female 5:39 AM SOLID WASTE TECHNICIAN Gender Identity Not on file Sexual Orientation Not on file documented as of this encounter Plan of Treatment Not on file documented as of this encounter Procedures Procedure Name Priority Date/Time Associated Diagnosis Comments DERMATOPATHOLOGY Routine 10/31/2021 12:0 0 AM SOLID WASTE TECHNICIAN documented in this encounter Results * DERMATOPATHOLOGY (10/31/2021 12:00 AM SOLID WASTE TECHNICIAN) Case Report Dermatopathology Report Case: [id number] Authorizing Provider: Truong Kirk Jr., MD Collected: 10/31/2021 12:00 AM Ordering Location: [facility] Received: 11/01/2021 08:18 AM Pathologist: Shayla Rodriguez MD Specimen: Skin, right anterior proximal thigh 3:54 PM [facility] DERMATOPATHOLOGY LABORATORY Final Diagnosis Specimen A. SKIN, right anterior proximal thigh: MOLLUSCUM CONTAGIOSUM (B08.1) 3:54 PM SOLID WASTE TECHNICIAN DERMATOPATHOLOGY LABORATORY Clinical History Molluscum contagiosum. . 3:54 PM SOLID WASTE TECHNICIAN DERMATOPATHOLOGY LABORATORY Gross Description Specimen A: Received is one formalin filled container labeled with the patient's name and designated right anterior proximal thigh. The specimen consists of a shave biopsy measuring 0v2o0qw, 4o7s4aq, 7g4s8xe, & 5x9p9cj. Jar 0+. 3:54 PM SOLID WASTE TECHNICIAN DERMATOPATHOLOGY LABORATORY Microscopic Description Specimen A. SKIN, right anterior proximal thigh: There are several inverted lobules of squamous epithelium with numerous intracytoplasmic eosinophilic inclusions (molluscum bodies). 3:54 PM SOLID WASTE TECHNICIAN DERMATOPATHOLOGY LABORATORY Disclaimer An external and internal positive and negative controls are appropriate for the histochemical, immunohistochemical and immunofluorescence stain(s) in this case (if any), except where stated explicitly. The performance characteristics of the stain(s) cited in this report were developed and its performance characteristic determined by the Dermatopathology Laboratory at [facility], directed by Dr. Iveth Rodriguez. These tests need not be, and therefore are not, approved by the [place] Food and Drug Administration. The tests are used for clinical purposes. Billing Codes Specimen Charges Stain Charges 04057 1 3:54 PM SOLID WASTE TECHNICIAN DERMATOPATHOLOGY LABORATORY Embedded Images 3:54 PM SOLID WASTE TECHNICIAN DERMATOPATHOLOGY LABORATORY Pathology/Cytolog y TISSUE SPECIMEN FROM SKIN / Unknown 10/31/2021 11/01/2021 8:18 AM SOLID WASTE TECHNICIAN us Truong Kirk Jr., MD LAB - PATHOLOGY/CYTOLOG Y ORDERABLES Final Result DERMATOPATHOLOGY LABORATORY [facility] - Department of Dermatology [address] [phone] documented in this encounter Visit Diagnoses Not on filedocumented in this encounter Care Teams Tractor Technician Relationship Specialty Start Date End Date Ermelinda Young MD [address] [place] [address] PCP - General 08/22/11 documented as of this encounter
--- OUTSIDE RECORDS SUMMARY | 2025-03-14 07:46 | XMS_ITS | Clinical Summary ---
Author Organization [facility] Address [address] [place] [address] Care Team Providers Care Armhole Baster Hand Name Role Phone Ermelinda Young MD Primary Care Provider [phone] Source Comments [facility],non-[facility] Affiliates and Associated Physician Practices is amultiple site organization consisting of ambulatory clinics and hospital sitesin [place], [place], [place] and [place]. This disclosure is being madepursuant to the Care Everywhere program and may not contain all information available regarding this patient. Last updated 18.[facility] [employer] Allergies Active Allergy Reactions Criticality Noted Date [...] on file Legal Sex Female 5:39 AM OBGYN SPECIALIST Gender Identity Not on file Sexual Orientation [...] complete this topic Insurance AETNA Care Teams Armhole Baster Hand Relationship Specialty Start Date End Date Ermelinda Young MD [address] [place] [address] PCP - General 08/22/11
--- OUTSIDE RECORDS SUMMARY | 2025-03-14 07:46 | XMS_ITS | Referral Summary ---
Author Organization [facility] [address] Address [address] [place] [address] Phone Care Team Providers Care Blocker Heated Metal Forms Name Role Phone Jaye Martin MD Unavailable Iain Skaggs MD Primary Care Provider Fransico Solorzano MD Unavailable Harmony Thomas Unavailable Encounters Date Type Department Care Team Description 02/09/2025 Telephone [facility] [address] [place] [phone] Iain Skaggs MD 01/10/20[facility] [address] [place] [phone] Iain Skaggs MD 12/28/2024 3:00 PM COORDINATOR OF REHABILITATION SERVICES Office Visit [facility] [address] [place] [phone] Iain Skaggs MD Annual visit for general [...] Lomeli). Assessment & Plan (12/29/2024 4:56 AM COORDINATOR OF REHABILITATION SERVICES): Chronic, present for five or more years, [...] dysplasia. Assessment & Plan (12/29/2024 4:55 AM COORDINATOR OF REHABILITATION SERVICES): Chronic, diagnosed about five years ago, with [...] 12/21/2019 Assessment & Plan (12/29/2024 4:53 AM COORDINATOR OF REHABILITATION SERVICES): Chronic, present for five or more years, [...] care. Assessment & Plan (12/21/2019 11:37 AM COORDINATOR OF REHABILITATION SERVICES): Patient reports symptoms or chest pain and shortness of breath, when she is anxious. She noted that she has been having increasing feelings of anxiety and worry. Medication initiated. Will re-evaluate at her next visit. 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 She is enjoying the very much. Assessment & Plan (06/29/2022 1:54 PM CDT): She graduated from [employer] in October. 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 She is living with her parents [...] available. Assessment & Plan (12/22/2019 7:56 AM COORDINATOR OF REHABILITATION SERVICES): Patient presents with symptoms of depression and [...] resolved. Assessment & Plan (01/15/2020 4:11 PM COORDINATOR OF REHABILITATION SERVICES): Complete cessation encouraged. Other chest pain 12/21/2019 [...] time. Assessment & Plan (12/21/2019 11:36 AM COORDINATOR OF REHABILITATION SERVICES): Most likely secondary to anxiety. We did [...] 05/11/201711/2018 Assessment & Plan (10/31/2018 2:35 PM COORDINATOR OF REHABILITATION SERVICES): She is no longer taking Remeron. She does not feel she needs it. She has adjusted well to college life. We will have her follow up annually or sooner as needed. Assessment & Plan (12/08/2017 8:39 PM COORDINATOR OF REHABILITATION SERVICES): She came in for evaluation of her mood. She is in her first year of college at [employer]. She says she just does not feel [...] 11/11/2018 Assessment & Plan (10/01/2017 5:54 AM COORDINATOR OF REHABILITATION SERVICES): She started to have bowel symptoms this past summer consisting of generalized abdominal pain and nauseas most mornings that kept her from eating breakfast regularly. Sometimes there was associated vomiting. No hematemesis. 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 Weight has fluctuated with some loss initially, [...] necessary Assessment & Plan (01/15/2020 4:10 PM COORDINATOR OF REHABILITATION SERVICES): Patient presents with intractable nausea and vomiting since 01/08 and an associated 10lb weight loss. She was seen in the ER at a hospital in [place]. She was found to be hypokalemic,but no [...] hypokalemia. Assessment & Plan (11/28/2017 11:20 AM COORDINATOR OF REHABILITATION SERVICES): These are most likely functional problems. Her bowel habits are normal. She has lost a little weight, but it is not severe. Lab testing was completely normal. She did not return the stool cards for occult blood. For now, we will continue to monitor without additional testing or referral. Assessment & Plan (10/09/2017 6:21 PM COORDINATOR OF REHABILITATION SERVICES): Summer 2016 started having morning severe abdominal [...] & murmer - 08/21 COMPLETE cardiac w/u [facility] including echo and exercise stress test normal Functional heart murmur 08/21/2012 090 11/2016 Overview (02/14/2017): Benign heart murmur Health care maintenance 08/21/2012 12/2 11/2017 Overview (07/12/2017): Assessment & Plan (09/30/2017 11:03 AM COORDINATOR OF REHABILITATION SERVICES): Symptoms started about six months ago. They [...] on file Legal Sex Female 2:01 AM COORDINATOR OF REHABILITATION SERVICES Gender Identity Not on file Sexual Orientation Not on file Occupation Industry Job Start Date Job End Date Not on file Not on file Not on file Not on file Last Filed Vital Signs Vital Sign Reading Time Taken Comments Blood Pressure 122/72 12/28/2024 2:50 PM COORDINATOR OF REHABILITATION SERVICES Pulse 102 12/28/2024 2:50 PM COORDINATOR OF REHABILITATION SERVICES Temperature 36.2 C (97.1 F) 12/28/2024 2:50 PM COORDINATOR OF REHABILITATION SERVICES Respiratory Rate 16 12/28/2024 2:50 PM COORDINATOR OF REHABILITATION SERVICES Oxygen Saturation 99% 12/28/2024 2:50 PM COORDINATOR OF REHABILITATION SERVICES Inhaled Oxygen Concentration - - Weight 74.7 kg (164 lb 9.6 oz) 12/28/2024 2:50 P M COORDINATOR OF REHABILITATION SERVICES Height 170.2 cm (5' 7.01 ) 12/28/2024 2:50 PM CS T Body Mass Index 25.77 12/28/2024 2:50 PM COORDINATOR OF REHABILITATION SERVICES Plan of Treatment Not on file Procedures Procedure Name Priority Date/Time Associated Diagnosis Comments EAR CERUMEN REMOVAL Routine 12/28/2024 3 :00 PM COORDINATOR OF REHABILITATION SERVICES Impacted cerumen of left ear PAP WITH REFLEX TO HIGH RISK HPV Routine 07/16/2024 9:28 AM CDT from Last 3 Months or Most Recently Relevant to Health Maintenance Results * Ear Cerumen Removal (12/28/2024 3:00 PM COORDINATOR OF REHABILITATION SERVICES) Narrative Iain Skaggs MD - 12/28/2024 3:00 PM COORDINATOR OF REHABILITATION SERVICES Iain Skaggs MD 12/29/2024 5:07 AM Ear [...] AM CDT Narrative 07/20/2024 10:46 AM CDT [facility] Department of Pathology [address] [place] [address] Final Report Note to Patients: This report [...] details. Patient Name: ROSALIE DE SANTIAGO Address: [address] [place] [address] Gender: F : 2000 (Age: 24) Service: Location: [facility] #: [id number] Patient Type: [facility] SPECIMEN Taken: 07/16/2024 Received: 07/17/2024 Accessioned:: 07/17/2024 Reported: 07/20/2024 Physician(s): MD Jaye Garcia MD Diagnosis: SOURCE OF SPECIMEN Imaged Thinprep Pap Test w/ Reflex HPV - Furniture Sprayer Cytologic Material: STATEMENT OF ADEQUACY - Specimen satisfactory for interpretation; endocervical/transformation zone component absent or insufficient GENERAL CATEGORIZATION: - Negative for intraepithelial lesion or malignancy INTERPRETATION: - Numerous inflammatory cells present YENI Silveira(ASCP) Report Electronically Reviewed and Signed Out By YENI Silveira(ASCP) 07/20/2024 10:46:59Specimen(s) Received: A: Imaged Thinprep Pap Test w/ Reflex HPV - Furniture Sprayer Cytologic Material Clinical History: Last Menstrual Period: [...] determined by the Surgical Pathology Department at [facility] as part of an ongoing quality assurance director program and in compliance with federally mandated [...] characteristics determined by the Surgical Pathology Department [facility]. It has not been cleared or approved by the U. S. Food and Drug Administration. Jaye Martin MD LAB CYTOLOGY ORDERABL ES Final Result from Last 3 Months or Most Recently Relevant to Health Maintenance Insurance COMMERCIAL GENERIC AETNA COVENTRY HMO/POS COMMERCIAL GENERIC MULTIPLAN CARE [facility] ANTHEM ACCESS CHOICE COMMERCIAL GENERIC Care Teams Blocker Heated Metal Forms Relationship Specialty Start Date End Date Iain Skaggs MD [address] [place] [address] PCP - General Infectious Diseases 05/06/19 Jaye Martin MD [address] [place] [address] Obstetrics and Gynecology 06/20/17 Fransico Solorzano MD [address] [place] [address] Consulting Physician Gastroenterology 01/22/20 Harmony Thomas PA [address] [facility] [address] [place] [address] Physician Leather Sprayer Gastroenterology 04/03/23
--- OUTSIDE RECORDS SUMMARY | 2025-03-14 07:46 | XMS_ITS | Clinical Summary ---
Author Organization [email or web address] [address] [place] [place] [address] Care Team Providers Care Mark Up Designer Name Role Phone Iain Skaggs MD Primary Care Provider [phone] Allergies Active Allergy Reactions Criticality Noted Date [...] Advance Directives For more information, please contact: [phone] * Full Code (Latest Code Status on File) Date Activated Date Inactivated Comments 07/23/2023 12:29 PM 07/23/2023 4:01 PM * Full Code Date Activated Date Inactivated Comments 01/21/2020 12:22 PM 01/21/2020 4:54 PM Care Teams Mark Up Designer Relationship Specialty Start Date End Date Iain Skaggs MD [address] [place] [address] PCP - General Internal Medicine 01/19/20
[2025-03-14 07:52] LABS: Basophils Percent Auto 0.1 % (0.2-1.2); Hematocrit 44.8 % (37.0-47.0); Hemoglobin 15.2 g/dL (12.0-15.0); Immature Granulocyte Absolute 0.09 K/mm3 (0.00-0.031); Immature Granulocyte Percent A 0.6 % (0-0.5); Lymphocytes Absolute Auto 0.73 K/mm3 (0.9-3.2); Lymphocytes Percent Auto 5.1 % (18.3-44.2); Mean Corpuscular HGB Conc 33.9 g/dl (32-36); Mean Corpuscular Hemoglobin 29.9 pg (26-34); Mean Platelet Volume 9.7 fl (7.4-10.4); Neutrophils Absolute Auto 12.5 K/mm3 (1.3-6.7); Neutrophils Percent Auto 87.2 % (45.5-73.1); Platelet Count Result 343 k/mm3 (150-375); Red Blood Count 5.09 M/mm3 (4.2-5.4); Red Cell Distribution Width 12.3 % (11.5-14.5); White Blood Count 14.4 K/mm3 (4.5-10.0)
[2025-03-14 08:05] LABS: Alanine Aminotransferase 26 U/L (6-35); Albumin Level 5.5 g/dL (3.5-5.1); Alkaline Phosphatase 86 U/L (38-126); Anion Gap 20 mmol/L (4-12); Aspartate Amino Transferase 31 U/L (14-36); Bilirubin,Total 1.4 mg/dL (0.2-1.3); Blood Urea Nitrogen 32 mg/dL (7-17); Carbon Dioxide 22 mmol/L (22-30); Chloride 92 mmol/L (98-107); Estimated CRCL calculation 53 ml/min; Estimated Glomerular Filt Rate 47; Glucose 122 mg/dL (65-110); Lipase 63 U/L (23-300); Potassium 3.4 mmol/L (3.4-5.0); Sodium 134 mmol/L (137-145)
[2025-03-14] MEDS: METOCLOPRAMIDE HCL INJ 10 MG/2 ML VIAL IV PUSH (08:19)
[2025-03-14] MEDS: diphenhydrAMINE HCl INJ 50 MG/ML VIAL IV PUSH (08:19)
[2025-03-14 08:36] LABS: Add Urine Microscopic? YES; Appearance Urine Cloudy (Clear); Bacteria Urine None Seen /hpf; Bilirubin Urine Negative (Negative); Blood Urine 3+ (Negative); Color Urine Dark Yellow (Yellow); Glucose Urine UA Negative (Negative); Ketones Urine 2+ mg/dL (Negative); Leukocyte Esterase Ur Trace LEU/UL (Negative); Need Manual Microscopic Reviewed; Nitrate Urine Negative (Negative); Protein Urine 2+ mg/dL (Negative); RBC Urine >100 /hpf (0-2); Specific Grav Ur 1.034 (1.001-1.035); Squamous Epithelial Cell Urine Few /hpf (Few); Urobilinogen Urine 0.2 mg/dL (<2.0)
[2025-03-14 09:00] VITALS: BP 136/84; PULSE 60; RESP 18; O2SAT 100
--- NOTE | 2025-03-14 10:45 | PC.NURSE ---
Attempted report. RN states they will call me back in 5 minutes
--- NOTE | 2025-03-14 11:05 | ADMGEN ---
This patient, Rosalie Velasco, was admitted to Medical Room 347-01. Patient/family oriented to hospital policies and general routines including ID bracelet, bed and alarms, visiting hours, pain management, procedures, bathroom and other care routines, personal items, smoking policy, room service/diet, and visiting hours. Information on how to activate the Rapid Response Team has been discussed. Patient/Family are encouraged to report perceived risks to care and to ask questions if they do not understand what they are told or what they should do.
[2025-03-14 11:06] VITALS: BP 145/87; PULSE 69; RESP 19; TEMP 36.6; O2SAT 100
[2025-03-14] MEDS: SODIUM CHLORIDE 0.9% IV 1,000 ML 250 ML IV CONT (11:31)
[2025-03-14] MEDS: HALOPERIDOL LACTATE 5 MG/ML VIAL IV PUSH ×2 (11:31→22:06)
--- NOTE | 2025-03-14 12:30 | P.HP_ITS ---
H&P: HPI History of Present Illness Date/Time: 03/14/25 12:30 Chief Complaint: intractable vomiting Narrative: 23-year-old female past medical history of anxiety who presented to the ER on account of intractable vomiting of 3 days duration. Patient reported that she has a habitual marijuana smoker, and has quit since onset of these symptoms. Noted she has been vomiting about 25 times a day denies any abdominal pain no diarrhea no dysuria no chest pain no shortness of breath. ER evaluation notable vital signs stable within normal limits, left frontal for WBC 14.4, creatinine 1.36, CT abdomen and pevis unremarkable. Patient's most by 1 additional day she quit since onset of these symptoms. Review of Systems Review of Systems: All systems were reviewed and negative except as noted history above. [facility] Past Medical History Medical History Cannabinoid hyperemesis syndrome No pertinent past medical history Surgical History Surgical History No pertinent past surgical history Social History Social History Smoking status: Never smoker Substance use: current Substance use type: marijuana Meds Home Medications and Allergies Home Medications ?Medication ?Instructions ?Recorded ?Confirmed ?Type metoclopramide HCl 10 mg tablet 10 mg PO Q6H PRN nausea and 03/06/23 Rx (Reglan) vomiting #30 tabs ondansetron 4 mg disintegrating 4 mg PO Q8H PRN nausea and 03/06/23 Rx tablet vomiting #30 tabs ondansetron 4 mg disintegrating 4 mg PO Q8H PRN nausea and 03/10/23 Rx tablet vomiting #10 tabs Allergies Allergy/AdvReac Type Severity Reaction Status Date / Time Sulfa (Sulfonamide Allergy Hives Verified 03/14/25 07:18 Antibiotics) Vital Signs Vital Signs - 24 hr 03/14/25 07:22 03/14/25 09:00 03/14/25 11:06 Temperature 97.2 F L 97.8 F Pulse Rate 78 60 69 Respiratory Rate 16 18 19 Blood Pressure 124/96 H 136/84 145/87 H Pulse Oximetry 100 100 100 Exam Narrative: General: alert and comfortable Eyes: EOMI, PERRLA ENNT External ears normal, Neck is supple, no masses, Respiratory systems: Clear to auscultation Cardiovascular S1, S2, normal rhythm, no murmur, rub, or gallop; no thrill or palpable murmurs on palpation. Gastrointestinal: soft, non-tender, and non-distended abdomen with no masses; BS present Skin: no rash, lesions, ulcerations, subcutaneous nodules or induration Musculoskeletal: no abnormality and no tenderness, normal ROM Neurologic: Alert and oriented x3, non focal Mental Status Exam: normal affect H&P: Results Labs Labs: Short CBC 03/14/25 Range/Units 07:43 WBC 14.4 H (4.5-10.0) K/mm3 Hgb 15.2 H (12.0-15.0) g/dL Hct 44.8 (37.0-47.0) % Plt Count 343 (150-375) k/mm3 BMP 03/14/25 07:43 Sodium 134 L Potassium 3.4 Chloride 92 L Carbon Dioxide 22 BUN 32 H D Creatinine 1.36 H Glucose 122 H Calcium 10.0 Liver Function 03/14/25 Range/Units 07:43 Total Bilirubin 1.4 H (0.2-1.3) mg/dL AST 31 (14-36) U/L ALT 26 (6-35) U/L Alkaline Phosphatase 86 (38-126) U/L Albumin 5.5 H (3.5-5.1) g/dL Urine 03/14/25 Range/Units 07:43 Urine Color Dark yellow (Yellow) Urine Appearance Cloudy H (Clear) Urine pH 5.0 (5.0-9.0) Ur Specific [place] 1.034 (1.001-1.035) Urine Protein 2+ H (Negative) mg/dL Urine Glucose (UA) Negative (Negative) mg/dL Assessment and Plan Assessment and plan (1) Cannabinoid hyperemesis syndrome: Code(s): R11.2 - Nausea with vomiting, unspecified; F12.90 - Cannabis use, unspecified, uncomplicated Status: Acute (2) CARLY (acute kidney injury): Code(s): N17.9 - Acute kidney failure, unspecified Status: Acute Plan Cannabinoid hyperemesis syndrome daily marijuana user, presented with intractable vomiting no marijuana use since onset of symptoms PRN Zofran, IVF and nighttime Amitriptyline monitor CARLY Cr 1.36, from dehydration IVF, and monitor Anxiety Continue Amitriptyline DVT prophylaxis on Sq Lovenox Full code Surrogate decision maker Tracy Velasco Hospitalist [facility] Advance Care Plan I have confirmed that the patient's Advanced Care Plan is present, code status is documented, or surrogate decision maker is listed in patient medical record.: Yes Medication Reconciliation I have utilized all available resources to obtain, update and review the patients current medications (includes all prescriptions, OTC, herbals, cannabis, and nutritional supplements).: Yes
[2025-03-14 13:43] VITALS: BMI 23.4
[2025-03-14 18:03] VITALS: BP 112/71; PULSE 73; RESP 16; TEMP 37.2; O2SAT 97
[2025-03-14 21:05] VITALS: PULSE 77; RESP 20; O2SAT 97
[2025-03-14 22:12] VITALS: BP 132/82; PULSE 80; RESP 20; TEMP 36.9; O2SAT 98
[2025-03-15 05:38] LABS: Basophils Percent Auto 0.3 % (0.2-1.2); Eosinophils Percent Auto 0.2 % (0-4.4); Hemoglobin 12.6 g/dL (12.0-15.0); Immature Granulocyte Absolute 0.04 K/mm3 (0.00-0.031); Immature Granulocyte Percent A 0.4 % (0-0.5); Lymphocytes Absolute Auto 1.33 K/mm3 (0.9-3.2); Lymphocytes Percent Auto 11.9 % (18.3-44.2); Mean Corpuscular HGB Conc 33.2 g/dl (32-36); Mean Corpuscular Hemoglobin 30.1 pg (26-34); Mean Corpuscular Volume 90.7 fl (80-100); Mean Platelet Volume 9.7 fl (7.4-10.4); Monocytes Absolute Auto 1.4 K/mm3 (0.1-0.6); Monocytes Percent Auto 12.5 % (2.6-8.5); Neutrophils Absolute Auto 8.4 K/mm3 (1.3-6.7); Neutrophils Percent Auto 74.7 % (45.5-73.1); Platelet Count Result 254 k/mm3 (150-375); Red Blood Count 4.19 M/mm3 (4.2-5.4); Red Cell Distribution Width 12.4 % (11.5-14.5); White Blood Count 11.2 K/mm3 (4.5-10.0)
[2025-03-15 05:49] LABS: Alanine Aminotransferase 19 U/L (6-35); Albumin Level 4.2 g/dL (3.5-5.1); Alkaline Phosphatase 63 U/L (38-126); Anion Gap 11 mmol/L (4-12); Aspartate Amino Transferase 21 U/L (14-36); Blood Urea Nitrogen 13 mg/dL (7-17); Calcium 8.7 mg/dL (8.4-10.2); Carbon Dioxide 22 mmol/L (22-30); Chloride 101 mmol/L (98-107); Estimated CRCL calculation 82 ml/min; Estimated Glomerular Filt Rate > 60; Glucose 85 mg/dL (65-110); Magnesium 2.4 mg/dL (1.6-2.3); Potassium 3.5 mmol/L (3.4-5.0); Sodium 134 mmol/L (137-145)
[2025-03-15 06:00] VITALS: BP 123/77; PULSE 53; RESP 18; TEMP 36.3; O2SAT 96
[2025-03-15] MEDS: buPROPion HCL XL (24 HR) 150 MG TABCR 300 MG PO (09:10)
[2025-03-15 11:56] LABS: BEDSIDEPREGUCG Negative (Negative)
--- NOTE | 2025-03-15 13:24 | PM.DS ---
DS: Admitting Diagnosis Discharge Date 03/15/25 Admitting Diagnosis intractable vomiting DS: Discharge Diagnosis Discharge Diagnosis (1) Cannabinoid hyperemesis syndrome: Code(s): R11.2 - Nausea with vomiting, unspecified; F12.90 - Cannabis use, unspecified, uncomplicated Status: Acute DS: Summary Hospital Course Hospital Course: 23-year-old female past medical history of anxiety who presented to the ER on account of intractable vomiting of 3 days duration. Patient reported that she has a habitual marijuana smoker, and has quit since onset of these symptoms. Noted she has been vomiting about 25 times a day denies any abdominal pain no diarrhea no dysuria no chest pain no shortness of breath. ER evaluation notable vital signs stable within normal limits, left frontal for WBC 14.4, creatinine 1.36, CT abdomen and pevis unremarkable. Patient was managed for Cannabinoid hyperemesis syndrome, patient stated she is a habitual marijuana user and has quit since onset of her symptoms. Vomiting has resolved and patient tolerated Jello and requested discharge. Patient counseled to stop using marijuanna and she agreed and noted she will continue to abstain from using. CARLY resolved with IVF. Patient discharged and will follow up with PCP in 3-5 days Time Spent with Patient Time attestation: Total time spent providing and/or coordinating discharge services: DS: Data Data Completed and Pending Labs on day of discharge: Labs from last 24 hours 03/15/25 03/14/25 05:17 07:37 WBC 11.2 H RBC 4.19 L Hgb 12.6 Hct 38.0 MCV 90.7 MCH 30.1 MCHC 33.2 RDW 12.4 Plt Count 254 MPV 9.7 Immature Gran % (Auto) 0.4 Neut % (Auto) 74.7 H Lymph % (Auto) 11.9 L Graham % (Auto) 12.5 H Eos % (Auto) 0.2 Baso % (Auto) 0.3 Lymph # (Auto) 1.33 Graham # (Auto) 1.4 H Eos # (Auto) 0.0 Baso # (Auto) 0.0 Abs Immat Gran (auto) 0.04 H Absolute Neuts (auto) 8.4 H Absolute Nucleated RBC 0.000 Nucleated RBC % 0.0 Sodium 134 L Potassium 3.5 Chloride 101 Carbon Dioxide 22 Anion Gap 11 BUN 13 D Creatinine 0.86 Estim Creat Clear Calc 82 Estimated GFR > 60 Glucose 85 Calcium 8.7 Magnesium 2.4 H Total Bilirubin 1.0 AST 21 ALT 19 Alkaline Phosphatase 63 Total Protein 7.0 Albumin 4.2 POC Urine HCG, Qual Negative Discharge Plan Discharge Attending physician on discharge: Ananth Virgen Discharging Clinician: Ananth Virgen Anticipated Discharge Date/Time: 03/15/25 13:23 Patient Disposition: Home Activity: as tolerated Diet: as tolerated and regular Patient Instructions: Antibiotic Form Patient Language: Kinyarwanda Stand Alone Forms: General Discharge Information Follow-up/Referrals: Sharifa,Iain Arvizu MD [Primary Care Provider] - (F/u with PCP in 3-5 days ) Discharge Medications: New ondansetron 4 mg tablet,disintegrating 4 mg PO Q8H PRN (Reason: nausea and vomiting) 5 Days Qty: 10 0RF Continued bupropion HCl 300 mg tablet extended release 24 hr 300 mg PO DAILY Date of admission: 03/14/25 10:10 Primary Care Provider: Krissy,Iain Arvizu Admitting Provider: Ananth Virgen Attending physician on admission: Ananth Virgen Condition: Guarded Prognosis
== END 2025-03-15 13:57 | disposition home or self-care (01) ==
LOC: ANHED 09:59 → ANH3MED 10:25
PROVIDERS: Admitting Provider Internal Medicine; Emergency Provider Emergency Medicine; PCP Internal Medicine Infectious Disease; Visit Provider Internal Medicine
DX: R11.2 Nausea with vomiting, unspecified (principal); F12.90 Cannabis use, unspecified, uncomplicated; N17.9 Acute kidney failure, unspecified; F41.9 Anxiety disorder, unspecified
CPT/HCPCS: 36415; 71045; 74177; 80053; 81001; 81025; 83690; 83735; 85025; 87086; 96361; 96374; 96375; 96376; 99285; A9270; G0378; J1200; J1630; J2405; J2765; J7030; Q9967